=== PATIENT | female | born 1950 | race Caucasian/White ===

== ENCOUNTER → 2016-12-03 | Outpatient (CLI) | payer MEDICARE ==
[~2016-12-03] MED LIST: ALLOPURINOL100 MG PO; AMOXAPINE PO; ATIVAN0.5 MG PO; AUGMENTIN 875 M1 TAB PO; COREG3.125 MG PO; COREG6.25 MG PO; CRESTOR10 MG PO; DAYPRO600 M1 PO; FLEXERIL10 MG PO; LANTUS100 U/ML SC; LIQUID MAGNESI400 MG PO; LISINOPRIL5 MG PO; MAGNESIUM100 MG PO; MELOXICAM7.5 MG PO; MULTIVITAMIN FO1 CAP PO; SYNTHROID0.137 MG PO; VICODIN ES 7501 TA1 PO; VOLTAREN1% T; ZESTRIL10 MG PO; ZITHROMAX250 MG PO
[2016-12-03 10:34] LABS: BASO % 0.3 % (0.0-1.0); EOS # 0.3 10*3/uL (0.0-0.4); EOS % 3.5 % (1.0-4.0); HEMATOCRIT 41.4 % (37.0-47.0); HEMOGLOBIN 13.1 g/dl (12.0-16.0); IG # 0.1 10*3/uL (0.0-0.1); LYMPH # 0.5 10*3/uL (1.3-4.4); LYMPH % 6.7 % (27.0-41.0); MEAN CELL VOLUME 89.8 fl (81.0-99.0); MEAN CORPUSCULAR HGB 28.4 pg (27.0-31.0); MEAN CORPUSCULAR HGB CONC 31.6 g/dl (33.0-37.0); MEAN PLATELET VOLUME 8.5 fl (9.6-12.3); MONO # 1.2 10*3/uL (0.1-1.0); MONO % 14.9 % (3.0-9.0); NEUT # 5.9 10*3/uL (2.3-7.9); PLATELET COUNT AUTOMATED 251 10*3/uL (130-400); RED BLOOD COUNT 4.61 10*6/uL (4.10-5.10); RED CELL DISTRI WIDTH 13.8 % (0-14.5); WHITE BLOOD COUNT 7.9 10*3/uL (4.8-10.8)
[2016-12-03 10:49] LABS: HEMOGLOBIN A1c 9.4 % (4.8-5.6)
[2016-12-03 11:24] LABS: ALBUMIN 3.4 gm/dl (3.1-4.5); BILIRUBIN, DIRECT < 0.1 mg/dL (0.0-0.2); BILIRUBIN, TOTAL 0.3 mg/dl (0.2-1.0); BUN 18 mg/dl (7-24); CARBON DIOXIDE 31 mmol/L (21-32); CHLORIDE 98 mmol/L (98-107); CHOLESTEROL 138 mg/dL (<200); EST GLOM FILT AFRICAN AMERICAN > 60 ml/min; GLUCOSE 234 mg/dL (65-99); POTASSIUM 5.3 mmol/L (3.5-5.1); SGOT/AST 18 IU/L (3-35); SGPT/ALT 29 U/L (12-78); SODIUM 135 mmol/L (136-145); TOTAL PROTEIN 8.4 gm/dL (6.4-8.2); TRIGLYCERIDES 312 mg/dl (<150); VLDL CHOLESTEROL 62 mg/dL (6-40)
[2016-12-03 11:31] LABS: ALKALINE PHOSPHATASE 86 U/L (45-117); FREE T4 1.32 ng/dl (0.76-1.46); HDL CHOLESTEROL 43 mg/dl (40-60); LDL CHOLESTEROL 33 mg/dL (9-159); PHOSPHOROUS 3.7 mg/dL (2.5-4.9)
== END | disposition home or self-care (01) ==
LOC: LAB 10:04
PROVIDERS: Internal Medicine
DX: E11.65 Type 2 diabetes mellitus with hyperglycemia (principal); E04.1 Nontoxic single thyroid nodule; I10 Essential (primary) hypertension

== ENCOUNTER 2016-12-11 17:29 | Inpatient (IN) | payer MEDICARE ==
[~2016-12-11] VITALS: Ht 165.1 cm; Wt 134.0 kg
[2016-12-11 17:55] VITALS: BP 150/75
[2016-12-11] MEDS ORDERED: TOUJEO300 U/ML SC ×2 (17:56→21:45)
[2016-12-11 18:35] LABS: BASO % 0.1 % (0.0-1.0); EOS # 0.2 10*3/uL (0.0-0.4); EOS % 1.2 % (1.0-4.0); HEMATOCRIT 37.4 % (37.0-47.0); IG # 0.2 10*3/uL (0.0-0.1); LYMPH # 1.7 10*3/uL (1.3-4.4); LYMPH % 12.1 % (27.0-41.0); MEAN CELL VOLUME 88.2 fl (81.0-99.0); MEAN CORPUSCULAR HGB 28.3 pg (27.0-31.0); MEAN CORPUSCULAR HGB CONC 32.1 g/dl (33.0-37.0); MEAN PLATELET VOLUME 8.8 fl (9.6-12.3); MONO # 1.4 10*3/uL (0.1-1.0); MONO % 9.8 % (3.0-9.0); NEUT # 10.5 10*3/uL (2.3-7.9); NEUT % 75.7 % (47.0-73.0); PLATELET COUNT AUTOMATED 258 10*3/uL (130-400); RED BLOOD COUNT 4.24 10*6/uL (4.10-5.10); RED CELL DISTRI WIDTH 13.9 % (0-14.5); WHITE BLOOD COUNT 13.9 10*3/uL (4.8-10.8)
[2016-12-11 18:46] LABS: PROTHROMBIN TIME 10.4 SECONDS (9.0-12.4)
[2016-12-11 18:53] LABS: ALBUMIN 2.7 gm/dl (3.1-4.5); ALKALINE PHOSPHATASE 80 U/L (45-117); BILIRUBIN, TOTAL 0.3 mg/dl (0.2-1.0); BUN 15 mg/dl (7-24); CARBON DIOXIDE 30 mmol/L (21-32); CHLORIDE 98 mmol/L (98-107); CPK 55 U/L (26-192); EST GLOM FILT AFRICAN AMERICAN > 60 ml/min; GLUCOSE 272 mg/dL (65-99); MAGNESIUM 1.9 mg/dL (1.5-2.1); POTASSIUM 4.6 mmol/L (3.5-5.1); SGOT/AST 20 IU/L (3-35); SGPT/ALT 22 U/L (12-78); SODIUM 137 mmol/L (136-145); TOTAL PROTEIN 7.6 gm/dL (6.4-8.2)
[2016-12-11 18:54] LABS: TROPONIN I < 0.015 ng/ml (<0.045)
[2016-12-11 20:30] LABS: LA>2 REFLEX 2 HR DRAW NOW
[2016-12-11 20:35] VITALS: BP 138/93
[2016-12-11 20:50] LABS: LA>2 RFLX FOLLOW UP AT 2 HRS 2.1 mmol/L (0.4-2.0)
[2016-12-11] MEDS ORDERED: LANTUS100 U/ML SC (21:06)
[2016-12-11] MEDS ORDERED: CYCLOBENZAPRINE10 MG PO (21:42)
[2016-12-11] MEDS ORDERED: Synthroid,Lev200 MCG PO (21:42)
[2016-12-11] MEDS ORDERED: MAGNESIUM400 M1 PO (21:44)
[2016-12-11] MEDS ORDERED: OXYBUTYNIN10 MG PO (21:46)
[2016-12-11 22:43] LABS: LA>2 REFLEX 4 HR DRAW NOW
[2016-12-12 06:23] LABS: HEMATOCRIT 36.5 % (37.0-47.0); HEMOGLOBIN 11.8 g/dl (12.0-16.0); MEAN CELL VOLUME 87.3 fl (81.0-99.0); MEAN CORPUSCULAR HGB 28.2 pg (27.0-31.0); MEAN CORPUSCULAR HGB CONC 32.3 g/dl (33.0-37.0); MEAN PLATELET VOLUME 8.9 fl (9.6-12.3); PLATELET COUNT AUTOMATED 276 10*3/uL (130-400); RED BLOOD COUNT 4.18 10*6/uL (4.10-5.10); RED CELL DISTRI WIDTH 13.9 % (0-14.5); WHITE BLOOD COUNT 12.9 10*3/uL (4.8-10.8)
[2016-12-12 06:52] LABS: ALBUMIN 2.6 gm/dl (3.1-4.5); ALKALINE PHOSPHATASE 94 U/L (45-117); BILIRUBIN, TOTAL 0.2 mg/dl (0.2-1.0); BUN 16 mg/dl (7-24); CARBON DIOXIDE 27 mmol/L (21-32); CHLORIDE 100 mmol/L (98-107); CHOLESTEROL 109 mg/dL (<200); EST GLOM FILT AFRICAN AMERICAN > 60 ml/min; GLUCOSE 427 mg/dL (65-99); HDL CHOLESTEROL 48 mg/dl (40-60); LDL CHOLESTEROL 40 mg/dL (9-159); PHOSPHOROUS 2.6 mg/dL (2.5-4.9); POTASSIUM 4.7 mmol/L (3.5-5.1); SGOT/AST 17 IU/L (3-35); SGPT/ALT 22 U/L (12-78); SODIUM 136 mmol/L (136-145); TOTAL PROTEIN 7.7 gm/dL (6.4-8.2); TRIGLYCERIDES 107 mg/dl (<150); VLDL CHOLESTEROL 21 mg/dL (6-40)
[2016-12-12 06:56] LABS: THYROID STIM HORMONE (HS) 0.958 uIU/ml (0.358-4.75)
[2016-12-12 07:04] LABS: BILIRUBIN NEGATIVE (NEGATIVE); BLOOD NEGATIVE (NEGATIVE); CLARITY SL CLOUDY (CLEAR); COLOR YELLOW (YELLOW); GLUCOSE 3+ (NEGATIVE); KETONE NEGATIVE (NEGATIVE); LEUKO ESTERASE NEGATIVE (NEGATIVE); NITRITE NEGATIVE (NEGATIVE); PH 5.5 (5.0-9.0); PROTEIN TRACE (NEGATIVE); SPECIFIC GRAVITY 1.015 (1.005-1.030); UROBILINOGEN 0.2 E.U./dl (0.2-1.0)
[2016-12-12 07:14] LABS: ATYPICAL LYMPHS 1 % (0-0); LYMPHOCYTE # 0.8 10*3/uL (1.3-4.4); MONOCYTE # 0.1 10*3/uL (0.1-1.0); NEUTROPHILS 93 % (47-73); PLATELET SUFFICIENCY NORMAL (NORMAL); TOTAL CELLS COUNTED 100 #CELLS
[2016-12-12 07:25] LABS: BACTERIA 1+; URINE REFLEX COMMENT NO (NO)
[2016-12-12 08:00] VITALS: BP 150/80
[2016-12-12 08:55] LABS: HEMOGLOBIN A1c 9.7 % (4.8-5.6)
[2016-12-12 09:54] LABS: VITAMIN D, 25-HYDROXY 24.7 ng/mL (30-100)
[2016-12-12 10:12] LABS: FOLIC ACID > 24.00 ng/mL (>5.38)
[2016-12-12 12:00] VITALS: BP 170/70
[2016-12-12 16:00] VITALS: BP 177/72
[2016-12-12 20:00] VITALS: BP 168/82; BP 182/66
[2016-12-13 00:17] VITALS: BP 142/80
[2016-12-13 06:38] LABS: HEMATOCRIT 36.1 % (37.0-47.0); HEMOGLOBIN 11.4 g/dl (12.0-16.0); MEAN CELL VOLUME 89.8 fl (81.0-99.0); MEAN CORPUSCULAR HGB 28.4 pg (27.0-31.0); MEAN CORPUSCULAR HGB CONC 31.6 g/dl (33.0-37.0); MEAN PLATELET VOLUME 8.4 fl (9.6-12.3); PLATELET COUNT AUTOMATED 317 10*3/uL (130-400); RED BLOOD COUNT 4.02 10*6/uL (4.10-5.10); RED CELL DISTRI WIDTH 13.6 % (0-14.5); WHITE BLOOD COUNT 16.9 10*3/uL (4.8-10.8)
[2016-12-13 07:08] LABS: LYMPHOCYTE # 1.2 10*3/uL (1.3-4.4); METAMYELOCYTES 2 % (0-0); MONOCYTE # 0.7 10*3/uL (0.1-1.0); MYELOCYTES 2 % (0-0); NEUTROPHIL # 14.4 10*3/uL (2.3-7.9); NEUTROPHILS 85 % (47-73); PLATELET SUFFICIENCY NORMAL (NORMAL); POLYCHROMASIA SLIGHT; TOTAL CELLS COUNTED 100 #CELLS
[2016-12-13 07:09] LABS: ROULEAUX SLIGHT
[2016-12-13 07:10] LABS: BUN 24 mg/dl (7-24); CARBON DIOXIDE 31 mmol/L (21-32); CHLORIDE 101 mmol/L (98-107); EST GLOM FILT AFRICAN AMERICAN > 60 ml/min; GLUCOSE 357 mg/dL (65-99); POTASSIUM 4.9 mmol/L (3.5-5.1); SODIUM 137 mmol/L (136-145)
[2016-12-13 08:00] VITALS: BP 136/76
[2016-12-13 12:00] VITALS: BP 133/67
[2016-12-13] MEDS ORDERED: LISINOPRIL20 MG PO (12:49)
[2016-12-13] MEDS ORDERED: GLUCOPHAGE500 MG PO (12:49)
[2016-12-13] MEDS ORDERED: PREDNISONE50 MG PO (12:49)
[2016-12-13] MEDS ORDERED: COREG12.5 M1 PO (12:51)
== END 2016-12-13 14:04 | disposition home or self-care (01) | DRG 871 ==
LOC: ED 17:29 → EDHOLD 19:57 → 5E 19:57
PROVIDERS: Student in an Organized Health Care Education/Training Program
DX: A41.9 Sepsis, unspecified organism (principal); J96.01 Acute respiratory failure with hypoxia; J18.9 Pneumonia, unspecified organism; R65.20 Severe sepsis without septic shock; F41.9 Anxiety disorder, unspecified; E11.8 Type 2 diabetes mellitus with unspecified complications; Z79.4 Long term (current) use of insulin; E78.5 Hyperlipidemia, unspecified; E03.9 Hypothyroidism, unspecified; Z88.4 Allergy status to anesthetic agent; Z88.0 Allergy status to penicillin; J45.909 Unspecified asthma, uncomplicated; M19.90 Unspecified osteoarthritis, unspecified site

== ENCOUNTER → 2017-05-24 | Outpatient (CLI) | payer MEDICARE ==
[~2017-05-24] MED LIST changes: +COREG12.5 M1 PO; +CYCLOBENZAPRINE10 MG PO; +GLUCOPHAGE500 MG PO; +LISINOPRIL20 MG PO; +MAGNESIUM400 M1 PO; +OXYBUTYNIN10 MG PO; +PREDNISONE50 MG PO; +Synthroid,Lev200 MCG PO; +TOUJEO300 U/ML SC
[2017-05-24 11:32] LABS: BASO # 0.1 10*3/uL (0.0-0.1); BASO % 0.5 % (0.0-1.0); EOS # 0.7 10*3/uL (0.0-0.4); EOS % 6.3 % (1.0-4.0); HEMATOCRIT 40.3 % (37.0-47.0); HEMOGLOBIN 13.2 g/dl (12.0-16.0); LYMPH # 2.3 10*3/uL (1.3-4.4); LYMPH % 20.5 % (27.0-41.0); MEAN CELL VOLUME 89.6 fl (81.0-99.0); MEAN CORPUSCULAR HGB 29.3 pg (27.0-31.0); MEAN CORPUSCULAR HGB CONC 32.8 g/dl (33.0-37.0); MEAN PLATELET VOLUME 8.6 fl (9.6-12.3); MONO # 1.1 10*3/uL (0.1-1.0); NEUT # 6.8 10*3/uL (2.3-7.9); NEUT % 62.1 % (47.0-73.0); PLATELET COUNT AUTOMATED 297 10*3/uL (130-400); RED CELL DISTRI WIDTH 13.5 % (0-14.5)
[2017-05-24 12:07] LABS: ALBUMIN 3.3 gm/dl (3.1-4.5); BILIRUBIN, DIRECT < 0.1 mg/dL (0.0-0.2); BUN 23 mg/dl (7-24); CHLORIDE 101 mmol/L (98-107); CHOLESTEROL 136 mg/dL (<200); CREATININE 0.93 mg/dL (0.55-1.02); MAGNESIUM 1.6 mg/dL (1.5-2.1); PHOSPHOROUS 4.1 mg/dL (2.5-4.9); POTASSIUM 4.7 mmol/L (3.5-5.1); SGOT/AST 15 IU/L (3-35); SGPT/ALT 22 U/L (12-78); SODIUM 137 mmol/L (136-145); TRIGLYCERIDES 236 mg/dl (<150); VLDL CHOLESTEROL 47 mg/dL (6-40)
[2017-05-24 12:15] LABS: ALKALINE PHOSPHATASE 116 U/L (45-117); HDL CHOLESTEROL 41 mg/dl (40-60); LDL CHOLESTEROL 48 mg/dL (9-159); TOTAL PROTEIN 8.5 gm/dL (6.4-8.2)
== END | disposition home or self-care (01) ==
LOC: LAB 10:52
PROVIDERS: Internal Medicine
DX: E11.65 Type 2 diabetes mellitus with hyperglycemia (principal)

== ENCOUNTER → 2017-06-18 | Outpatient (CLI) | payer MEDICARE ==
[2017-06-18 11:13] LABS: FREE T4 0.93 ng/dl (0.76-1.46)
[2017-06-18 11:17] LABS: THYROID STIM HORMONE (HS) 8.01 uIU/ml (0.358-4.75)
== END | disposition home or self-care (01) ==
LOC: LAB 10:14
PROVIDERS: Internal Medicine
DX: E03.9 Hypothyroidism, unspecified (principal)

== ENCOUNTER → 2018-06-13 | Outpatient (CLI) | payer MEDICARE ==
[2018-06-13 17:31] LABS: BILIRUBIN NEGATIVE (NEGATIVE); BLOOD TRACE-INTACT (NEGATIVE); CLARITY SL CLOUDY (CLEAR); COLOR YELLOW (YELLOW); GLUCOSE NEGATIVE (NEGATIVE); KETONE NEGATIVE (NEGATIVE); LEUKO ESTERASE 1+ (NEGATIVE); NITRITE POSITIVE (NEGATIVE); PH 5.5 (5.0-9.0); UROBILINOGEN 0.2 E.U./dl (0.2-1.0)
[2018-06-13 17:31] LABS: BASO % 0.3 % (0.0-1.0); EOS # 0.3 10*3/uL (0.0-0.4); EOS % 2.8 % (1.0-4.0); HEMATOCRIT 38.3 % (37.0-47.0); HEMOGLOBIN 12.1 g/dl (12.0-16.0); LYMPH % 18.5 % (27.0-41.0); MEAN CELL VOLUME 90.3 fl (81.0-99.0); MEAN CORPUSCULAR HGB 28.5 pg (27.0-31.0); MEAN CORPUSCULAR HGB CONC 31.6 g/dl (33.0-37.0); MEAN PLATELET VOLUME 8.4 fl (9.6-12.3); MONO # 0.9 10*3/uL (0.1-1.0); MONO % 8.6 % (3.0-9.0); NEUT # 7.6 10*3/uL (2.3-7.9); NEUT % 69.3 % (47.0-73.0); PLATELET COUNT AUTOMATED 266 10*3/uL (130-400); RED BLOOD COUNT 4.24 10*6/uL (4.10-5.10); WHITE BLOOD COUNT 10.9 10*3/uL (4.8-10.8)
[2018-06-13 17:45] LABS: BACTERIA 4+
[2018-06-13 17:46] LABS: EPITHELIAL CELLS 21-30; WBC 21-30 wbc/hpf (0-5)
[2018-06-13 17:48] LABS: ALKALINE PHOSPHATASE 82 U/L (45-117); BUN 19 mg/dl (7-24); CHLORIDE 98 mmol/L (98-107); CREATININE 0.85 mg/dL (0.55-1.02); POTASSIUM 4.8 mmol/L (3.5-5.1); SGOT/AST 18 IU/L (3-35); SGPT/ALT 27 U/L (12-78); SODIUM 134 mmol/L (136-145)
== END | disposition home or self-care (01) ==
LOC: LAB 15:49 → US 16:00
PROVIDERS: Nurse Practitioner Family
DX: N28.89 Other specified disorders of kidney and ureter (principal); E11.9 Type 2 diabetes mellitus without complications; R32 Unspecified urinary incontinence

== ENCOUNTER → 2018-08-25 | Outpatient (CLI) | payer MEDICARE ==
--- NOTE | ~2018-08-25 | EKG ---
[place], [place] ELECTROCARDIOGRAM REPORT NAME: EVELIN DIGGS UNIT #: [id number] ROOM: DOCTOR: EPIPHANY DRAFT REPORT BIRTHDATE: [birth year] [facility] Test Date: 2018-08-25 Test Time: 15:02:48 Pat Name: EVELIN DIGGS Department: Room: Gender: F Sales Representative [employer]: ANTON : 1950 Requested By: SANDI OTT Order Number: [id number] Reading MD: Sandi Ott MD Measurements Intervals [place] Rate: 79 P: 70 MO: 159 QRS: 1 QRSD: 92 T: 44 QT: 363 QTc: 417 Interpretive Statements Sinus rhythm Low voltage, precordial leads Electronically Signed On 08-26-2018 11:54:06 PST by Sandi Ott MD CM:EKGRPT:ELECTROCARDIOGRAM REPORT 1502 1154 SANDI OTT MD EPIPHANY DRAFT REPORT SANDI OTT MD
[2018-08-25 15:39] LABS: BILIRUBIN NEGATIVE (NEGATIVE); BLOOD NEGATIVE (NEGATIVE); CLARITY SL CLOUDY (CLEAR); COLOR YELLOW (YELLOW); GLUCOSE NEGATIVE (NEGATIVE); KETONE NEGATIVE (NEGATIVE); LEUKO ESTERASE 1+ (NEGATIVE); NITRITE POSITIVE (NEGATIVE); UROBILINOGEN 0.2 E.U./dl (0.2-1.0)
[2018-08-25 15:48] LABS: RBC 0-2 rbc/hpf (0-2); WBC 31-40 wbc/hpf (0-5)
[2018-08-25 15:49] LABS: BACTERIA 4+; MUCOUS TRACE
[2018-08-25 15:49] LABS: BASO % 0.3 % (0.0-1.0); EOS # 0.5 10*3/uL (0.0-0.4); EOS % 4.7 % (1.0-4.0); HEMATOCRIT 38.3 % (37.0-47.0); HEMOGLOBIN 11.8 g/dl (12.0-16.0); LYMPH # 1.8 10*3/uL (1.3-4.4); LYMPH % 16.4 % (27.0-41.0); MEAN CELL VOLUME 90.8 fl (81.0-99.0); MEAN CORPUSCULAR HGB CONC 30.8 g/dl (33.0-37.0); MEAN PLATELET VOLUME 8.4 fl (9.6-12.3); MONO # 0.8 10*3/uL (0.1-1.0); MONO % 7.1 % (3.0-9.0); NEUT # 7.8 10*3/uL (2.3-7.9); PLATELET COUNT AUTOMATED 258 10*3/uL (130-400); RED BLOOD COUNT 4.22 10*6/uL (4.10-5.10); RED CELL DISTRI WIDTH 13.4 % (0-14.5); WHITE BLOOD COUNT 10.9 10*3/uL (4.8-10.8)
[2018-08-25 15:58] LABS: ACT PARTIAL THROMBO TIME 25.7 SECONDS (20.8-31.5)
[2018-08-25 15:59] LABS: ALKALINE PHOSPHATASE 85 U/L (45-117); BUN 18 mg/dl (7-24); CHLORIDE 102 mmol/L (98-107); CREATININE 0.96 mg/dL (0.55-1.02); POTASSIUM 5.2 mmol/L (3.5-5.1); SGOT/AST 14 IU/L (3-35); SGPT/ALT 27 U/L (12-78); SODIUM 137 mmol/L (136-145); TOTAL PROTEIN 7.4 gm/dL (6.4-8.2)
== END | disposition home or self-care (01) ==
LOC: LAB 14:31
PROVIDERS: Nurse Practitioner Family
DX: N30.40 Irradiation cystitis without hematuria (principal); E13.620 Other specified diabetes mellitus with diabetic dermatitis

== ENCOUNTER → 2018-11-04 | Outpatient (CLI) | payer MEDICARE | END | disposition home or self-care (01) | LOC: MAMMO 10-14 15:00 → CARD 12:04 | DX: Z12.31 Encounter for screening mammogram for malignant neoplasm of breast (principal); I35.0 Nonrheumatic aortic (valve) stenosis; R01.1 Cardiac murmur, unspecified ==

== ENCOUNTER → 2018-11-10 | Outpatient (CLI) | payer MEDICARE ==
[2018-11-10 12:08] LABS: BASO % 0.3 % (0.0-1.0); EOS # 0.3 10*3/uL (0.0-0.4); EOS % 2.6 % (1.0-4.0); HEMATOCRIT 39.8 % (37.0-47.0); HEMOGLOBIN 12.2 g/dl (12.0-16.0); LYMPH # 2.5 10*3/uL (1.3-4.4); LYMPH % 21.1 % (27.0-41.0); MEAN CELL VOLUME 91.5 fl (81.0-99.0); MEAN CORPUSCULAR HGB CONC 30.7 g/dl (33.0-37.0); MEAN PLATELET VOLUME 8.3 fl (9.6-12.3); MONO # 1.1 10*3/uL (0.1-1.0); MONO % 9.5 % (3.0-9.0); NEUT # 7.8 10*3/uL (2.3-7.9); NEUT % 65.7 % (47.0-73.0); PLATELET COUNT AUTOMATED 238 10*3/uL (130-400); RED BLOOD COUNT 4.35 10*6/uL (4.10-5.10); RED CELL DISTRI WIDTH 14.1 % (0-14.5); WHITE BLOOD COUNT 11.8 10*3/uL (4.8-10.8)
[2018-11-10 12:46] LABS: ALBUMIN 3.1 gm/dl (3.1-4.5); BILIRUBIN, DIRECT < 0.1 mg/dL (0.0-0.2); BUN 25 mg/dl (7-24); CHLORIDE 104 mmol/L (98-107); CHOLESTEROL 157 mg/dL (<200); POTASSIUM 5.1 mmol/L (3.5-5.1); SGOT/AST 12 IU/L (3-35); SGPT/ALT 26 U/L (12-78); SODIUM 139 mmol/L (136-145); TOTAL PROTEIN 7.4 gm/dL (6.4-8.2)
[2018-11-10 12:50] LABS: ALKALINE PHOSPHATASE 105 U/L (45-117); HDL CHOLESTEROL 44 mg/dl (40-60); LDL CHOLESTEROL 88 mg/dL (9-159); PHOSPHOROUS 4.2 mg/dL (2.5-4.9); TRIGLYCERIDES 124 mg/dl (<150); VLDL CHOLESTEROL 25 mg/dL (6-40)
== END | disposition home or self-care (01) ==
LOC: LAB 11:35
PROVIDERS: Internal Medicine
DX: E11.65 Type 2 diabetes mellitus with hyperglycemia (principal); I10 Essential (primary) hypertension

== ENCOUNTER → 2019-04-10 | Outpatient (CLI) | payer MEDICARE ==
[~2019-04-10] MED LIST changes: +CLEOCIN HCL300 MG PO
--- NOTE | ~2019-04-10 | EKG ---
[place], [place] ELECTROCARDIOGRAM REPORT NAME: EVELIN DIGGS UNIT #: [id number] ROOM: DOCTOR: BRIANDA DRAFT REPORT BIRTHDATE: [birth year] [facility] Test Date: 2019-04-10 Test Time: 09:24:12 Pat Name: EVELIN DIGGS Department: Room: Gender: F Rn Progressive Care: : 1950 Requested By: LANETTE DELGADILLO Order Number: [id number] Reading MD: Navarro Flower MD Measurements Intervals [place] Rate: 79 P: 63 TN: 163 QRS: -10 QRSD: 91 T: 35 QT: 376 QTc: 432 Interpretive Statements Sinus rhythm Low voltage, precordial leads Compared to ECG 08/25/2018 15:02:48 No significant changes Electronically Signed On 04-11-2019 13:20:13 PDT by Navarro Flower MD CM:EKGRPT:ELECTROCARDIOGRAM REPORT 3 1320 LANETTE SAGASTUMEANY DRAFT REPORT LANETTE DELGADILLO
[2019-04-10 09:54] LABS: ALBUMIN 3.2 gm/dl (3.1-4.5); ALKALINE PHOSPHATASE 96 U/L (45-117); BILIRUBIN, DIRECT < 0.1 mg/dL (0.0-0.2); BUN 17 mg/dl (7-24); CHLORIDE 104 mmol/L (98-107); CREATININE 0.83 mg/dL (0.55-1.02); PHOSPHOROUS 3.6 mg/dL (2.5-4.9); POTASSIUM 4.6 mmol/L (3.5-5.1); SGOT/AST 16 IU/L (3-35); SGPT/ALT 21 U/L (12-78); SODIUM 138 mmol/L (136-145); TOTAL PROTEIN 7.4 gm/dL (6.4-8.2)
[2019-04-10 09:57] LABS: BASO % 0.3 % (0.0-1.0); EOS # 0.6 10*3/uL (0.0-0.4); EOS % 5.7 % (1.0-4.0); HEMATOCRIT 39.8 % (37.0-47.0); HEMOGLOBIN 12.3 g/dl (12.0-16.0); LYMPH # 2.1 10*3/uL (1.3-4.4); LYMPH % 21.7 % (27.0-41.0); MEAN CELL VOLUME 91.1 fl (81.0-99.0); MEAN CORPUSCULAR HGB 28.1 pg (27.0-31.0); MEAN CORPUSCULAR HGB CONC 30.9 g/dl (33.0-37.0); MEAN PLATELET VOLUME 8.8 fl (9.6-12.3); MONO % 9.9 % (3.0-9.0); NEUT # 6.1 10*3/uL (2.3-7.9); PLATELET COUNT AUTOMATED 281 10*3/uL (130-400); RED BLOOD COUNT 4.37 10*6/uL (4.10-5.10); RED CELL DISTRI WIDTH 13.9 % (0-14.5); WHITE BLOOD COUNT 9.8 10*3/uL (4.8-10.8)
== END | disposition home or self-care (01) ==
LOC: LAB 09:06
PROVIDERS: Internal Medicine
DX: I10 Essential (primary) hypertension (principal); E11.65 Type 2 diabetes mellitus with hyperglycemia

== ENCOUNTER 2019-05-05 17:03 | Emergency (ER) | payer MEDICARE ==
[~2019-05-05] VITALS: Ht 165.1 cm; Wt 122.5 kg
[~2019-05-05 17:03] MED LIST changes: -CLEOCIN HCL300 MG PO
[2019-05-05] MEDS ORDERED: CLEOCIN HCL300 MG PO (17:40)
== END 2019-05-05 17:40 | disposition home or self-care (01) ==
LOC: ED 17:03
DX: K02.9 Dental caries, unspecified (principal); Z79.899 Other long term (current) drug therapy; Z88.0 Allergy status to penicillin; Z88.8 Allergy status to other drugs, medicaments and biological substances

== ENCOUNTER 2019-05-26 15:36 | Inpatient (IN) | payer MEDICARE ==
[~2019-05-26] VITALS: Ht 165.1 cm; Wt 120.5 kg
[~2019-05-26 15:36] MED LIST changes: +CLEOCIN HCL300 MG PO; -VOLTAREN1% T; +VOLTAREN100 GM T
[2019-05-26 15:38] VITALS: BP 136/52
--- NOTE | 2019-05-26 17:43 | NUR ---
PT STATES THE TORADOL HAS HELPED HER PAIN.
[2019-05-26 18:53] VITALS: BP 110/50
[2019-05-26 20:33] VITALS: BP 120/56
--- NOTE | 2019-05-26 20:33 | NUR ---
Time: 2033 A 69 year old FEMALE admitted to under services of ANKIT NGUYEN DO, Pt. arrived via stretcher from ER. Chief complaint: KNEE PAIN. CARYN COPELAND
[2019-05-26] MEDS ORDERED: LISINOPRIL10 M1 PO (20:48)
[2019-05-26] MEDS ORDERED: ALLOPURINOL300 MG PO (20:53)
[2019-05-26] MEDS ORDERED: DULOXETINE HCL30 MG PO (20:55)
[2019-05-26] MEDS ORDERED: LANTUS SOL100 UNIT/1 SQ (20:56)
[2019-05-26] MEDS ORDERED: ALLERGY RELIE15.8 ML NAS (20:59)
[2019-05-26] MEDS ORDERED: PERCOCET 7.5-31 EACH PO (21:00)
[2019-05-26] MEDS ORDERED: Ipratropium Brom3 ML INH (21:01)
[2019-05-26] MEDS ORDERED: SYMB160 INH (21:03)
[2019-05-26 21:07] LABS: BASO % 0.2 % (0.0-1.0); EOS # 0.1 10*3/uL (0.0-0.4); EOS % 0.9 % (1.0-4.0); HEMATOCRIT 37.6 % (37.0-47.0); HEMOGLOBIN 11.6 g/dl (12.0-16.0); LYMPH # 1.2 10*3/uL (1.3-4.4); LYMPH % 10.6 % (27.0-41.0); MEAN CELL VOLUME 91.9 fl (81.0-99.0); MEAN CORPUSCULAR HGB 28.4 pg (27.0-31.0); MEAN CORPUSCULAR HGB CONC 30.9 g/dl (33.0-37.0); MEAN PLATELET VOLUME 8.7 fl (9.6-12.3); MONO # 1.2 10*3/uL (0.1-1.0); MONO % 10.7 % (3.0-9.0); NEUT # 8.6 10*3/uL (2.3-7.9); NEUT % 76.6 % (47.0-73.0); PLATELET COUNT AUTOMATED 286 10*3/uL (130-400); RED BLOOD COUNT 4.09 10*6/uL (4.10-5.10); RED CELL DISTRI WIDTH 14.4 % (0-14.5); WHITE BLOOD COUNT 11.2 10*3/uL (4.8-10.8)
[2019-05-26 21:18] LABS: CREATININE 1.3 mg/dL (0.55-1.02); POTASSIUM 4.5 mmol/L (3.5-5.1)
--- NOTE | 2019-05-26 21:31 | NUR ---
MORPHINE GIVEN FOR C/O PAIN IN RIGHT KNEE RATED 10/10 ON A 0/10 PAIN SCALE. TYLENOL GIVEN FOR ORAL TEMP OF 99.5. WILL MONITOR FOR EFFECTIVENESS
[2019-05-27] VITALS: BP 121/55
--- NOTE | 2019-05-27 00:12 | NUR ---
PATIENT RESTING IN BED WITH NO NEEDS MADE. FLUIDS INFUSING WITHOUT DIFFICULTY. BED IN LOWEST POSITION, CALL LIGHT IN REACH
--- NOTE | 2019-05-27 05:58 | NUR ---
PT COMPLAINT OF PAIN TO RIGHT KNEE, RESTING IN BED AT THIS TIME. PAIN 7 ON 1-10 SCALE. PT GIVEN MORPHINE PER ORDER.
[2019-05-27 06:54] LABS: BASO % 0.2 % (0.0-1.0); HEMATOCRIT 35.9 % (37.0-47.0); HEMOGLOBIN 11.2 g/dl (12.0-16.0); LYMPH # 0.8 10*3/uL (1.3-4.4); LYMPH % 8.2 % (27.0-41.0); MEAN CELL VOLUME 90.9 fl (81.0-99.0); MEAN CORPUSCULAR HGB 28.4 pg (27.0-31.0); MEAN CORPUSCULAR HGB CONC 31.2 g/dl (33.0-37.0); MEAN PLATELET VOLUME 8.9 fl (9.6-12.3); MONO # 0.2 10*3/uL (0.1-1.0); MONO % 2.5 % (3.0-9.0); NEUT # 8.5 10*3/uL (2.3-7.9); NEUT % 88.3 % (47.0-73.0); PLATELET COUNT AUTOMATED 281 10*3/uL (130-400); RED BLOOD COUNT 3.95 10*6/uL (4.10-5.10); RED CELL DISTRI WIDTH 14.4 % (0-14.5); WHITE BLOOD COUNT 9.7 10*3/uL (4.8-10.8)
--- NOTE | 2019-05-27 07:10 | NUR ---
ARRIVED ON SHIFT, INTRODUCED TO PATIENT, BEDSIDE REPORT RECEIVED, WHITE BOARD UPDATED NO NEEDS VOICED AT THIS TIME.
[2019-05-27 07:24] LABS: POTASSIUM 4.8 mmol/L (3.5-5.1)
[2019-05-27 07:25] LABS: ACT PARTIAL THROMBO TIME 37.2 SECONDS (20.0-32.1)
[2019-05-27 07:33] LABS: ALBUMIN 2.4 gm/dl (3.1-4.5); CREATININE 1.14 mg/dL (0.55-1.02); FREE T4 1.51 ng/dl (0.76-1.46); PHOSPHOROUS 3.7 mg/dL (2.5-4.9); THYROID STIM HORMONE (HS) 0.11 uIU/ml (0.358-4.75); TOTAL PROTEIN 7.1 gm/dL (6.4-8.2); URIC ACID 4.7 mg/dL (2.6-6.0)
--- NOTE | 2019-05-27 07:57 | NUR ---
Shift chart check completed.
[2019-05-27 08:00] VITALS: BP 132/64
[2019-05-27 08:57] LABS: VITAMIN D, 25-HYDROXY 23.2 ng/mL (30-100)
--- NOTE | 2019-05-27 08:58 | NUR ---
PHYSICAL THERAPY Nursing screen received and chart reviewed. Recommend PT evaluation when medically appropriate. Thank you. Paige Gonzalez,PT,DPT
--- NOTE | 2019-05-27 09:00 | NUR ---
Clinical Assoc in to talk to patient. Patient states lives at home alone with her family checking in on her. There are 14 steps in the home. Physician: Dr. Yusuf Parkinson Pharmacy: [facility] Home health services: would like [facility] Patient's level of ADLs: MINIMAL ASSIST Patient has working utilities: yes DME: quad cane, nebulizer Follow-up physician's appointment after d/c: will be made by the hospitalist nurse director upon discharge Does patient want to access PORTAL?: no Discharge plan discussed with patient. She lives at home alone with her family checking in on her. She is independent in her ADLs and ambulates with a quad cane. Discussed home health care services and she is agreeable. When provided with a list of agencies she chose [facility]. When medically stable she will be discharged to home with [facility] services. Her best friend, Aster, will provide transportation on discharge. BECCA LENTZ
--- NOTE | 2019-05-27 09:00 | NUR ---
CALL PLACED TO DR. MCCRARY'S OFFICE, ASVISED OF CONSULT FOR CHRONIC R KNEE PAIN.
--- NOTE | 2019-05-27 10:54 | NUR ---
CALL PLACED TO DR. MCCRARY, SPOKE TO SAMREEN ADVISED THATWEIGHT IS [phone]
[2019-05-27 12:00] VITALS: BP 138/43
--- NOTE | 2019-05-27 14:32 | NUR ---
PHYSICAL THERAPY Physical therapy evaluation complete, 4E. Full details and evaluation to follow. moderate complexity determined after therapy evaluation and chart review. PT will work on strength, endurance, balance, gait and safety. Recommending SNF. thank you. Fabiana Fajardo, PT, DPT
--- NOTE | 2019-05-27 14:47 | NUR ---
PATIENT REQUESTED TO SPEAK WITH SUPERVISOR COMPONENT ASSEMBLER REGARDING HOUSING AND HOME EQUIPMENT, ADVISED ANASTASIIA IN CASEMANAGEMENT.
[2019-05-27 16:00] VITALS: BP 132/59
--- NOTE | 2019-05-27 17:01 | NUR ---
PATIENT BS 421, ALSO RECEIVED REPORT OF LACTIC ACID 2.[address] ISIDRO OF BOTH RESULTS, ADVISED TO CONTINUE WITH SS INSULIN ORDERED.
[2019-05-27 18:44] LABS: BF LYMPHOCYTES 6 %; BF MONOCYTES 16 %; BF NEUTROPHILS 78 %
[2019-05-27 18:45] LABS: BODY FLUID WBC 48825 /uL
--- NOTE | 2019-05-27 19:37 | NUR ---
NOTIFIED DR. KEITH OF CRITICAL LATIC ACID OF 2.4. NO NEW ORDERS RECEIVED.
[2019-05-27 20:00] VITALS: BP 128/57
--- NOTE | 2019-05-27 21:55 | NUR ---
DR GALLEGOS NOTIFIED OF CRITICAL LACTIC ACID OF 2.5.
[2019-05-28] VITALS (10 sets, daily range): BP systolic 118–157; BP diastolic 45–93
--- NOTE | 2019-05-28 00:50 | NUR ---
Patient medicated with norco as per prn order for c/o back pain. rated pain a 5/10 with 10 being the worst. see emar. reinforced use of call light.
--- NOTE | 2019-05-28 01:43 | NUR ---
DR. YOUNG NOTIFIED OF CRITICAL LSCTIC ACID OF 2.4.
[2019-05-28 03:50] LABS: BASO % 0.1 % (0.0-1.0); HEMATOCRIT 31.7 % (37.0-47.0); LYMPH # 0.9 10*3/uL (1.3-4.4); LYMPH % 6.5 % (27.0-41.0); MEAN CELL VOLUME 90.1 fl (81.0-99.0); MEAN CORPUSCULAR HGB 28.4 pg (27.0-31.0); MEAN CORPUSCULAR HGB CONC 31.5 g/dl (33.0-37.0); MEAN PLATELET VOLUME 8.7 fl (9.6-12.3); MONO # 0.9 10*3/uL (0.1-1.0); MONO % 6.4 % (3.0-9.0); NEUT # 12.3 10*3/uL (2.3-7.9); NEUT % 86.1 % (47.0-73.0); PLATELET COUNT AUTOMATED 263 10*3/uL (130-400); RED BLOOD COUNT 3.52 10*6/uL (4.10-5.10); RED CELL DISTRI WIDTH 14.4 % (0-14.5); WHITE BLOOD COUNT 14.3 10*3/uL (4.8-10.8)
[2019-05-28 04:05] LABS: ALBUMIN 2.2 gm/dl (3.1-4.5); ALKALINE PHOSPHATASE 96 U/L (45-117); BUN 31 mg/dl (7-24); CHLORIDE 106 mmol/L (98-107); CREATININE 0.99 mg/dL (0.55-1.02); POTASSIUM 4.9 mmol/L (3.5-5.1); SGOT/AST 114 IU/L (3-35); SGPT/ALT 127 U/L (12-78); SODIUM 136 mmol/L (136-145); TOTAL PROTEIN 6.4 gm/dL (6.4-8.2)
--- NOTE | 2019-05-28 07:15 | NUR ---
ARRIVED ON SHIFT, INTRODUCED TO PATIENT, BEDSIDE REPORT RECEIVED.WHITE BOARD UPDATED.
--- NOTE | 2019-05-28 09:00 | NUR ---
Inspector Materials And Processes in to see patient. Discussed short term SNF and she is agreeable. When provided with a list of facilities she chose [facility]. Discussed with CM, supply planner, and patient regarding homelessness. She states she was staying with family but her welcome has been worn out. She was supposed to have an apartment all set up but yesterday the land lord called and said he needed the apartment for a family member that needed it for 3-4 months. Discussed [facility], [facility] [place], and [facility]. She states she has applied to all of the above within the last 3 weeks. kit planner to give more information to patient. kit planner following for SNF referral.
--- NOTE | 2019-05-28 09:35 | NUR ---
Shift chart check completed.
--- NOTE | 2019-05-28 10:15 | NUR ---
Patient is now stating she is homeless. She had been staying with some relatives but the relationship is now deteriorating. She had a house lined up to rent but was notified yesterday that the rental is no longer available. She stated she completed the application for [facility] housing a couple of months ago but there is a waiting list. I explained to her that if she stated at a homeless group home for 2 consecutive nights, she will move to the 1st place on the housing list. I also reminded her that because it's the first of the month, people who evaluate as no longer eligible for low income housing would be moving out making units available. I provided her with the phone number and told her to call and check on the list; I also provided her with a list of homeless shelters she would have to call herself. She was also provided with an application and phone number for the [facility] apartments. Patient was grateful and stated she will start working on this today. At this time patient is referred to the [facility] for snf placment. This requires a precert.
--- NOTE | 2019-05-28 10:15 | NUR ---
Patient is now requesting a referral to the [facility] for short term skilled. Referral was faxed, patient was accepted. Requires PT/OT precert.
--- NOTE | 2019-05-28 11:38 | NUR ---
PHYSICAL THERAPY Patient's bed is not in room at this time. Patient is in medical procedure at this time. MARISA RAO COMPRESS ENGINEER
--- NOTE | 2019-05-28 11:41 | NUR ---
Patient not available for Occupational Therapy evaluation as she is out of her room for a surgical procedure. Daphney Montana OTR/l
--- NOTE | 2019-05-28 13:18 | NUR ---
[facility] [place] intermediate project manager called back and stated she does not have any open apartments at [facility] right now, but there is not a waiting list either, so one could come open at any time. She also stated the [facility] [place] was full but she will have a 1 bedroom open Nov. . She gave me the fax number for patient to fax applicatiaon when she finishes completing it.
--- NOTE | 2019-05-28 14:15 | NUR ---
Occupational Therapy evaluation completed on 4 with full eval to follow. Precautions include fall risk, obesity, septic right knee with recent I and D by Dr. Christianson, moderate complexity level 06808 via chart review, testing and evaluation. Recommend OT per POC and SNF to enable return home at independent level. Thank you. Daphney Montana OTR/L
--- NOTE | 2019-05-28 15:53 | NUR ---
PHYSICAL THERAPY CO-SIGN I approve of the Physical Therapy notes written above. BECCA ESCALANTE PT,DPT
--- NOTE | 2019-05-28 16:03 | NUR ---
PHYSICAL THERAPY Patient was approached for PT session this AFTERNOON ND SHE DECLINED TREATMENT, SAYING SHE WAS NOT FEELING WELL AND VERY WEAK. Will check back tommorrow. MARISA RAO CAROUSEL OPERATOR
[2019-05-29] VITALS (8 sets, daily range): BP systolic 125–173; BP diastolic 65–81
--- NOTE | 2019-05-29 02:20 | NUR ---
PATIENT RESTING QUIETLY. NO FURTHER C/O VOICED.
--- NOTE | 2019-05-29 03:00 | NUR ---
MORPHINE GIVEN PER PRN ORDER FOR C/O LEG PAIN. RATED PAIN A6-7/10 WITH 10 BEING THE WORST. SEE EMAR. REINFORCED USE OF CALL LIGHT.
[2019-05-29 07:33] LABS: BASO % 0.1 % (0.0-1.0); HEMATOCRIT 33.5 % (37.0-47.0); HEMOGLOBIN 10.2 g/dl (12.0-16.0); LYMPH # 1.2 10*3/uL (1.3-4.4); LYMPH % 8.5 % (27.0-41.0); MEAN CELL VOLUME 91.8 fl (81.0-99.0); MEAN CORPUSCULAR HGB 27.9 pg (27.0-31.0); MEAN CORPUSCULAR HGB CONC 30.4 g/dl (33.0-37.0); MEAN PLATELET VOLUME 8.8 fl (9.6-12.3); MONO # 1.4 10*3/uL (0.1-1.0); MONO % 9.5 % (3.0-9.0); NEUT # 11.5 10*3/uL (2.3-7.9); NEUT % 80.6 % (47.0-73.0); PLATELET COUNT AUTOMATED 281 10*3/uL (130-400); RED BLOOD COUNT 3.65 10*6/uL (4.10-5.10); RED CELL DISTRI WIDTH 14.5 % (0-14.5); WHITE BLOOD COUNT 14.3 10*3/uL (4.8-10.8)
--- NOTE | 2019-05-29 08:42 | NUR ---
PRN MORPHINE GIVEN FOR CO RIGHT LEG PAIN RATED A 6/10. WILL CHECK EFFECTIVENESS. CALL LIGHT WITHIN REACH.
--- NOTE | 2019-05-29 08:48 | NUR ---
Additional clinicals and therapy faxed to [facility] to complete referral. Patient accepted, precert started, waiting on auth.
--- NOTE | 2019-05-29 09:08 | NUR ---
OFF THE FLOOR AT THIS TIME FOR SHIRA.
--- NOTE | 2019-05-29 09:41 | NUR ---
OT NOTE Attempted to see pt this A.M. for OT session and upon arrival pt was out of the room for surgery. Will check back at a later time/date and continue with POC as indicated. LEANDER Spivey/Shaun
--- NOTE | 2019-05-29 09:51 | NUR ---
PHYSICAL THERAPY Patient was out of her room this am for Surgery and not available for therapy at this time. Will continue per POC as able. Beka Pinzon, LAMP SHADE JOINER
--- NOTE | 2019-05-29 11:53 | NUR ---
DR. SANNA JAYFIED OF CRITICAL RESULT.
--- NOTE | 2019-05-29 12:05 | NUR ---
PT HAS RETURNED TO THE FLOOR FROM SURGERY AT THIS TIME.
--- NOTE | 2019-05-29 12:05 | NUR ---
PT DIDN'T RETURN FROM SURGERY TIL THIS TIME TO REEVALUTE HER PAIN. SHE STATES THE PAIN MED WAS EFFECTIVE AND WENT DOWN TO A 4/10 PAIN. WILL CONTINUE TO MONITOR. CALL LIGHT WITHIN REACH.
--- NOTE | 2019-05-29 12:22 | NUR ---
PHYSICAL THERAPY CO-SIGN I approve of the Physical Therapy notes written above. BECCA ESCALANTE PT, DPT
--- NOTE | 2019-05-29 13:48 | NUR ---
PHYSICAL THERAPY Patient was approached several times this pm for therapy visit and was receiving patient care first attmept and eating late lunch upon second attempt. Will continue per POC as able. Beka Pinzon, WASTE AND BATTING WASTE CHOPPER
--- NOTE | 2019-05-29 13:48 | NUR ---
OT NOTE Attempted to see pt this P.M. for OT session and upon arrival pt was requesting to wait till later due to eating lunch. Will check back at a later time/date and continue with POC as able. LEANDER Spivey/Shaun
[2019-05-29] MEDS ORDERED: CEFAZOLIN1 G1 IV (14:48)
--- NOTE | 2019-05-29 14:53 | NUR ---
PT EXPRESSED SHE DID NOT WANT HER AEROSOL TREATMENTS, DUONEB AND PULMICORT, SHE STATES SHE WANTS TO DO HER INHALER SYMBICORT WHICH SHE HAS WITH HER. RT TALKED TO RN AND SHE WAS TO GET IT PROFILED THROUGH PHARMACY. DR. SANNA GUTIERRES
--- NOTE | 2019-05-29 15:56 | NUR ---
PT C/O RIGHT LEG PAIN RATING IT A 7/10 ON THE PAIN SCALE. MEDICATED WITH PRN NORCO. WILL CHECK EFFECTIVENESS. CALL LIGHT WITHIN REACH.
[2019-05-29 16:06] LABS: ACID FAST SPEC PROCESSING Concentration (.)
--- NOTE | 2019-05-29 16:34 | NUR ---
PT C/O RIGHT LEG PAIN RATIING IT A 03/04. MEDICATED WITH PRN NORCO. WILL CHECK EFFECTIVENESS. CALL LIGHT WITHIN REACH.
--- NOTE | 2019-05-29 16:50 | NUR ---
PT STATES PAIN MED WAS EFFECTIVE RATING PAIN A 4/10. WILL CONTINUE TO MONITOR. CALL LIGHT WITHIN REACH.
--- NOTE | 2019-05-29 20:40 | NUR ---
PATIENT MEDICATED WITH NORCO PER PRN ORDER FOR C/O KNEE PAIN. RATED PAIN A 8/10 WITH 10 BEING THE WORST. SEE EMAR. REINFORCED USE OF CALL LIGHT,
--- NOTE | 2019-05-29 23:20 | NUR ---
PATEITN MEDICATED WITH MORPHINE PER PRN ORDER AND PATIENT REQUEST FOR C/O KNEE PAIN. RATED PAIN A 6/10 WITH 10 BEING THE WORST. SEE EMAR. REINFORCED USE OF CALL LIGHT
[2019-05-30] VITALS: BP 119/87
--- NOTE | 2019-05-30 01:00 | NUR ---
PATIENT RESTING QUIETLY. NO FURTHER C/O VOICED.
--- NOTE | 2019-05-30 02:01 | NUR ---
PATIENT MEDICATED WITH NORCO PER PRN ORDER AND PATIENT REQUEST FOR C/O PAIN. RATED PAIN A 7/10 WITH 10 BEING THE WORST. SEE EMAR. REINFORCED USE OF CALL LIGHT.
[2019-05-30 06:45] LABS: BASO % 0.1 % (0.0-1.0); EOS # 0.1 10*3/uL (0.0-0.4); EOS % 0.6 % (1.0-4.0); HEMATOCRIT 34.6 % (37.0-47.0); HEMOGLOBIN 10.5 g/dl (12.0-16.0); LYMPH # 1.7 10*3/uL (1.3-4.4); MEAN CELL VOLUME 92.5 fl (81.0-99.0); MEAN CORPUSCULAR HGB 28.1 pg (27.0-31.0); MEAN CORPUSCULAR HGB CONC 30.3 g/dl (33.0-37.0); MEAN PLATELET VOLUME 8.5 fl (9.6-12.3); MONO # 1.4 10*3/uL (0.1-1.0); NEUT # 8.1 10*3/uL (2.3-7.9); PLATELET COUNT AUTOMATED 285 10*3/uL (130-400); RED BLOOD COUNT 3.74 10*6/uL (4.10-5.10); RED CELL DISTRI WIDTH 14.5 % (0-14.5); WHITE BLOOD COUNT 11.4 10*3/uL (4.8-10.8)
[2019-05-30 06:59] LABS: ALBUMIN 2.2 gm/dl (3.1-4.5); BUN 23 mg/dl (7-24); CHLORIDE 104 mmol/L (98-107); POTASSIUM 4.7 mmol/L (3.5-5.1); SODIUM 135 mmol/L (136-145)
[2019-05-30 07:02] LABS: ALKALINE PHOSPHATASE 77 U/L (45-117); CREATININE 0.93 mg/dL (0.55-1.02); SGOT/AST 66 IU/L (3-35); SGPT/ALT 132 U/L (12-78); TOTAL PROTEIN 6.4 gm/dL (6.4-8.2)
[2019-05-30 08:00] VITALS: BP 132/68
--- NOTE | 2019-05-30 09:00 | NUR ---
DR. MCNEIL AWARE OF RESULT.
--- NOTE | 2019-05-30 09:36 | NUR ---
MEDICATED WITH NORCO FOR C/O R LEG PAIN RATED AT A 9 OUT 0F 10.
--- NOTE | 2019-05-30 10:30 | NUR ---
TAMMIE HELPED A LITTLE.
[2019-05-30 12:00] VITALS: BP 162/72
--- NOTE | 2019-05-30 12:48 | NUR ---
MEICATED WITH MORPHINE PER ORDER AND REQUEST FOR R KNEE PAIN.
--- NOTE | 2019-05-30 15:10 | NUR ---
MEDICATED WITH NORCO PER REQUEST FOR R KNEE PAIN.
[2019-05-30 16:00] VITALS: BP 131/92
--- NOTE | 2019-05-30 16:00 | NUR ---
PATIENT SLEEPING TAMMIE HELPED.
--- NOTE | 2019-05-30 18:01 | NUR ---
MEDICATED WITH PRN MORPHINE PER ORDER AND REQUEST FOR R KNEE PAIN.
--- NOTE | 2019-05-30 19:53 | NUR ---
1939 NORCO 1 PO GIVEN FOR CONT C/O'S PAIN R KNEE. WILL MONITOR.
[2019-05-30 20:00] VITALS: BP 142/74
--- NOTE | 2019-05-30 20:06 | NUR ---
RESTING IN BED WATCHING TV. NO DISTRESS NOTED. HEP LOCK INTACT.
--- NOTE | 2019-05-30 22:31 | NUR ---
PATIENT IS AAOX3 RESTING IN BED WITH EASY AND REGULAR RESPERS ON ROOM AIR. ASSESSMENT IS COMPLETE WITH NO S/S OF DISTRESS NOTED. PATIENT C/O RIGHT KNEE PAIN RATING A 7/10 AND PRN MORPHINE PROVIDED PER PATIENT REQUEST. BED IS LOW, LOCKED, AND CALL LIGHT IS WITHIN REACH. WILL CONTNIUE TO MONITOR SEE SHIFT ASSESSMENT.
--- NOTE | 2019-05-30 23:00 | NUR ---
WHILE REASSESSING PATIENTS PAIN, NOTICED THAT MELINA DRAIN WAS OUT OF RIGHT KNEE, CALL PLACED TO DR. GAMBLE AND NO NEW ORDERS RECIEVED AT THIS TIME. PATIENT DENIES ANY PAIN AT THIS TIME. CALL LIGHT IS WITHIN REACH, WILL CONTINUE TO MONITOR.
[2019-05-31] VITALS: BP 152/60
--- NOTE | 2019-05-31 00:05 | NUR ---
PATIENT WANTED ASSISTED FROM BED TO CHAIR TO TRY AND ALLEVIATE RIGHT KNEE PAIN AT 2345. IN PROCESS OF TRANSFERING FROM BED TO WHEELCHAIR PATIENT ASKED FOR "PAIN PILL". PRN NORCO GIVEN AT 2354, PATIENT TOLERATED WELL. CALL LIGHT IS WITHIN REACH, WILL MONITOR EFFECT.
--- NOTE | 2019-05-31 00:09 | NUR ---
PATIENT ASSISTED FROM CHAIR TO BED AT THIS TIME WITH WALKER. BED IS LOW, LOCKED, AND CALL LIGHT IS WITHIN REACH. WILL MONITOR EFFECT OF PAIN MEDICATION.
[2019-05-31 06:27] LABS: BASO % 0.2 % (0.0-1.0); EOS # 0.2 10*3/uL (0.0-0.4); EOS % 1.7 % (1.0-4.0); HEMATOCRIT 34.3 % (37.0-47.0); HEMOGLOBIN 10.7 g/dl (12.0-16.0); LYMPH # 1.9 10*3/uL (1.3-4.4); LYMPH % 17.2 % (27.0-41.0); MEAN CELL VOLUME 89.6 fl (81.0-99.0); MEAN CORPUSCULAR HGB 27.9 pg (27.0-31.0); MEAN CORPUSCULAR HGB CONC 31.2 g/dl (33.0-37.0); MEAN PLATELET VOLUME 8.9 fl (9.6-12.3); MONO # 1.2 10*3/uL (0.1-1.0); MONO % 10.3 % (3.0-9.0); NEUT # 7.6 10*3/uL (2.3-7.9); NEUT % 68.1 % (47.0-73.0); PLATELET COUNT AUTOMATED 294 10*3/uL (130-400); RED BLOOD COUNT 3.83 10*6/uL (4.10-5.10); RED CELL DISTRI WIDTH 14.2 % (0-14.5); WHITE BLOOD COUNT 11.2 10*3/uL (4.8-10.8)
--- NOTE | 2019-05-31 06:29 | NUR ---
24 HOUR CHART CHECK COMPLETE.
[2019-05-31 06:41] LABS: ALBUMIN 2.1 gm/dl (3.1-4.5); ALKALINE PHOSPHATASE 86 U/L (45-117); BUN 18 mg/dl (7-24); CHLORIDE 104 mmol/L (98-107); CREATININE 0.81 mg/dL (0.55-1.02); POTASSIUM 4.2 mmol/L (3.5-5.1); SGOT/AST 37 IU/L (3-35); SGPT/ALT 87 U/L (12-78); SODIUM 136 mmol/L (136-145); TOTAL PROTEIN 6.5 gm/dL (6.4-8.2)
[2019-05-31 08:00] VITALS: BP 142/44
--- NOTE | 2019-05-31 08:38 | NUR ---
DR. PATEL HAS ROUNDED. PATIENT PEMROSE DRAIN CAME OUT THROUGH NIGHT DRESSING 1/2 OFF AND NEEDS CHANGED.
--- NOTE | 2019-05-31 09:15 | NUR ---
MEDICATED WITH PRN NORCO PER ORDER AND REQUEST. DR. NIYAH LUONG.
--- NOTE | 2019-05-31 10:46 | NUR ---
DRESSING CHANGED. DR. LONG UPDATED DR. MILLER ON PATIENT STATUS. POSSIBLE RE-SCOPE IN AM 06/01 PENDING MRI RESULTS.
--- NOTE | 2019-05-31 11:32 | NUR ---
MEDICATED WITH STRAIGHT PERCOCET PER ORDER.
[2019-05-31 12:00] VITALS: BP 158/64
--- NOTE | 2019-05-31 13:00 | NUR ---
PERCOCET GIVEN EARLIER HELPED.
[2019-05-31 16:00] VITALS: BP 145/62
--- NOTE | 2019-05-31 18:58 | NUR ---
DR. MILLER AT BEDSIDE AND ASPIRATED R KNEE. SPECIMEN WALKED TO LAB. DRESSING PLACED BY DOCTOR. 4X4,ABD,2 TAMI WRAPS.
--- NOTE | 2019-05-31 19:59 | NUR ---
PATIENT IS RESTING IN BED WITH EASY AND REGULAR RESPERS ON ROOM AIR. ASSESSMENT IS COMPLETE WITH NO C/O OR S/S OF DISTRESS NOTED AT THIS TIME. BED IS LOW, LOCKED, AND CALL LIGHT IS WITHIN REACH. 2000 SCHEDULED PERCOCET GIVEN AT THIS TIME AND PATIENT TOLERATED WELL. WILL MONITOR EFFECT OF PAIN MEDICATION, SEE SHIFT ASSESSMENT.
[2019-05-31 20:00] VITALS: BP 160/71
[2019-06-01] VITALS: BP 155/60
[2019-06-01 06:13] LABS: HEMATOCRIT 33.3 % (37.0-47.0); HEMOGLOBIN 10.8 g/dl (12.0-16.0); MEAN CELL VOLUME 88.1 fl (81.0-99.0); MEAN CORPUSCULAR HGB 28.6 pg (27.0-31.0); MEAN CORPUSCULAR HGB CONC 32.4 g/dl (33.0-37.0); MEAN PLATELET VOLUME 8.9 fl (9.6-12.3); PLATELET COUNT AUTOMATED 305 10*3/uL (130-400); RED BLOOD COUNT 3.78 10*6/uL (4.10-5.10); RED CELL DISTRI WIDTH 14.1 % (0-14.5); WHITE BLOOD COUNT 12.2 10*3/uL (4.8-10.8)
[2019-06-01 06:46] LABS: BUN 16 mg/dl (7-24); CHLORIDE 101 mmol/L (98-107); POTASSIUM 4.3 mmol/L (3.5-5.1); SODIUM 135 mmol/L (136-145)
[2019-06-01 07:09] LABS: PLATELET SUFFICIENCY NORMAL (NORMAL); TOTAL CELLS COUNTED 100 #CELLS
[2019-06-01 08:00] VITALS: BP 134/64
--- NOTE | 2019-06-01 08:04 | NUR ---
OT NOTE Attempted to see pt this A.M. for OT session and upon arrival pt was out of the room for an MRI. Will check back at a later time/date and continue with POC as able. LEANDER Spivey/Shaun
--- NOTE | 2019-06-01 08:05 | NUR ---
PHYSICAL THERAPY Patient was being transported down for MRI this am upon therapist arrival and not available for treatment at this time. Will continue per POC pending results of MRI. Beka Pinzon, COOKER OPERATOR
--- NOTE | 2019-06-01 08:40 | NUR ---
PT IN MRI FOR TEST. REFUSING TEST SHE CAN'T HANDLE LAYING ON TABLE. C/O PAIN TO RIGHT KNEE RATES PAIN 8 ON PAIN SCALE 0-10. MEDICATED WITH MORPHINE IV PER PRN ORDER, SEE EMAR. THEY WILL BE BRINGING PT TO ROOM.
--- NOTE | 2019-06-01 09:00 | NUR ---
Line Appliance Assembler in to see patient. No new needs or request at this time. When medically stable and precert is received she will be discharged to [place]. materials planner following.
--- NOTE | 2019-06-01 09:34 | NUR ---
DR. KEYES AWARE PT REFUSED MRI.
--- NOTE | 2019-06-01 09:40 | NUR ---
PT RESTING IN BED. STATES PAIN MEDICATION HELPED. CALL LIGHT IN REACH.
--- NOTE | 2019-06-01 10:15 | NUR ---
TOLERATED ROUTINE MED WITH NO PROBLEM. NO C/O AT THIS TIME. CALL LIGHT IN REACH.
--- NOTE | 2019-06-01 11:22 | NUR ---
PT C/O RIGHT KNEE PAIN, RATES PAIN 4 OR 5 ON PAIN SCaLE 0-10. MEDICATED WITH PERCOCET PO PER ROUTINE ORDER, SEE EMAR. CALL LIGHT IN REACH. BSG-[id number]
[2019-06-01 12:00] VITALS: BP 154/74
--- NOTE | 2019-06-01 12:07 | NUR ---
updated clinicals and therapy notes faxed to [facility]/ requires precert. Waiting on patient to be stable for discharge.
[2019-06-01] MEDS ORDERED: PERSERVISION PO (12:11)
--- NOTE | 2019-06-01 12:55 | NUR ---
PHYSICAL THERAPY Patient seen this pm 1:1 for therapy and was supine in bed upon therapist arrival. Patient voices 4/10 R knee pain and present with R knee ina wrap. Patient transfers supine to sit EOB MIN A with use of overhead trapeze bar, then performed several sit to stand transfers, MIN A, use of std walker support. Patient demonstrates slow rise and needed v/c to improve safe transfer technique. Patient able to take 2-3 fwd / bkwd steps, std walker, Min A, demonstrating antalgic step pattern, followed by SPT to [facility] demonstrating Poor upright posture during pivot phase of transfer. Patient returned to supine in bed, MIN A, reporting 7/10 R knee pain. Patient remained in bed with call light, tray table, cell phone and bed alarm. Will continue per POC as tolerated to improve safe , functional transfers / mobility. Total treatment time 14 minutes. Beka Pinzon, CORN PICKER
--- NOTE | 2019-06-01 13:11 | NUR ---
OT NOTE Pt was seen this P.M. 1:1 for 20 minute OT session. Upon arrival pt was supine in bed. Pt identified by name and and had complaints of "4/10 R knee pain." Pt transferred supine to sit EOB with Sanjuanita for assist with RLE. While sitting EOB pt donned L sock with SBA while seated and R sock with maxA due to being unable to reach, pt had reports of having a sock aid at home. Pt completed multiple sit to stand transfers from bed level with Sanjuanita and use of standard walker for UE support. Challenged pt's static standing tolerance needed for increased I in self care tasks and functional transfers, pt was able to tolerate aprox 60 seconds before sitting due to fatigue. Pt then completed standing pivot from the EOB to and from the bedside commode with Sanjuanita. Pt then transferred back into bed sit to supine with Sanjuanita for assist with RLE. There she was left with call light in hand, tray table in place, and bed alarm activated for safety. Continue with rec D/C plan to SNF. LEANDER Spivey/Shaun
--- NOTE | 2019-06-01 14:52 | NUR ---
Contacted [facility] and asked to start precert. waiting on auth
[2019-06-01 16:00] VITALS: BP 147/83
[2019-06-01 20:00] VITALS: BP 137/53
--- NOTE | 2019-06-01 22:04 | NUR ---
PT MEDICATED W/MORPHINE IVP FOR C/O RT KNEE PAIN 03/04.
--- NOTE | 2019-06-01 22:15 | NUR ---
DRSG TO RT KNEE CHANGED ORDERED. PT REFUSING TO BEND KNEE AND RESISTING PROM. 2 SUTURES INTACT. NO DRAINAGE NOTED. MILD SWELLING NOTED. PT TEACHING GIVEN ON NEEDING TO MOVE KNEE OR PT WILL GET STIFF OR EVEN FROZEN. PT STATES SHE CAN'T. CALL LIGHT IN REACH.
[2019-06-02] VITALS: BP 153/53
--- NOTE | 2019-06-02 03:11 | NUR ---
PATIENT RESTING IN BED WITH NO S/S OF DISTRESS. BED IN LOWEST POSITION, CALL LIGHT IN REACH
--- NOTE | 2019-06-02 06:52 | NUR ---
DR YOUNG AWARE OF CRITICAL BODY FLUID RESULTS.
--- NOTE | 2019-06-02 07:06 | NUR ---
Patient has received auth for [facility]. Ok to go if medically stable for discharge.
--- NOTE | 2019-06-02 07:40 | NUR ---
PT C/O RIGHT KNEE PAIN, RATES PAIN 7 ON PAIN SCALE 0-10. MEDICATED WITH PERCOCET PO PER PRN ORDER, SEE EMAR. CALL LIGHT IN REACH.
[2019-06-02 08:00] VITALS: BP 132/64
--- NOTE | 2019-06-02 08:30 | NUR ---
PT RESTING IN BED. MEDICATION EFFECTIVE. NO PAIN WHEN NOT MOVBING PER PT.
--- NOTE | 2019-06-02 08:45 | NUR ---
PHYSICAL THERAPY Patient seen this am 1;1 for therapy visit and was resting supine in bed upon therapist arrival. Patient reports 4/10 R knee pain at rest and stated she had sat up in bedside chair yesterday for over 5 hours. Patient transfers supine to sit EOB with use of overhead trapeze bar, MIN A, tolerating static EOB sit x 4-5 minutes without c/o. Patient performed sit to stand transfer, MIN A, use of std walker standing support, voicing no change in R knee pain c/o. Patient completed SPT to bedside recliner chair, MIN A, use of std walker, demonstrating "slouched" upright posture and difficulty advancing R LE. Patient is WBAT on R LE and remained semi reclined in bedside chair following treatment with call light, tray table and cell phone. Will continue per POC as tolerated, total treatment time 13 minutes. Beka Pinzon, ROOF TRUSS BUILDER
--- NOTE | 2019-06-02 09:00 | NUR ---
OT NOTE Pt was seen this A.M. 1:1 for 15 minute OT session. Upon arrival pt was supine in bed. Pt identified by name and and had complaints of "4/10 R knee pain." Pt transferred supine to sit EOB with Sanjuanita and use of overhead trapeze bar for UB support. Pt completed multiple sit to stand transfers from bed level with Sanjuanita and use of w/w for UE support. Challenged pt's static standing tolerance needed for increased I in self care tasks and functional transfers. Pt was able to tolerate aprox 1-2 minutes at a time before sitting due to fatigue. Pt completed standing pivot from EOB to the recliner with Sanjuanita and use of w/w. There she was left sitting reclined with call light in hand, tray table in place, and phone in reach. Continue with rec D/C plan to SNF. LEANDER Spivey/Shaun
--- NOTE | 2019-06-02 10:00 | NUR ---
Overhead Worker in to see patient. She is sitting up in her bedside chair without distress noted. Niece visiting at bedside. She is awaiting her PICC line. When medically stable and PICC line is inserted she will be discharged to [place]. marine air ground task force planners following.
--- NOTE | 2019-06-02 10:48 | NUR ---
PT C/O RIGHT KNEE PAIN, RATES PAIN 4 OR 5 ON PAIN SCALE 0-10. MEDICATED WITH PERCOCET PO PER PRN ORDER, SEE EMAR. [id number], SEE EMAR. CALL LIGHT IN REACH.
--- NOTE | 2019-06-02 11:00 | NUR ---
assumed care for this pt at this time. pt c/o rt knee pain 03/04. pt had already been medicated w/percocet as ordered. pt encouraged to perform rom while sitting in chair. IS given to pt and encouraged use to prevent pneumonia while immobile. call light in reach.
--- NOTE | 2019-06-02 12:30 | NUR ---
pt leaving floor at this time to surgery for PICC line placement via w/c.
--- NOTE | 2019-06-02 12:32 | NUR ---
jg stating they are ok with the recommended IV ATB cefazolin for patient and she has auth. patient is ok to go if medically stable for discharge.
--- NOTE | 2019-06-02 13:11 | NUR ---
spoke w/isabella in case management, pt does not qualify for ambulance transport to [place]. pt will need to find her own ride. case management will speak with pt.
--- NOTE | 2019-06-02 14:17 | NUR ---
Patient discharging to [facility]. Transportation scheduled for 4:30 with [facility]. [facility], nursing/auto parts clerk notified.
[2019-06-02] MEDS ORDERED: VITAMIN D32000 UNI1 PO (14:55)
[2019-06-02] MEDS ORDERED: OXYBUTYNIN CHLOR5 MG PO (14:55)
[2019-06-02] MEDS ORDERED: PERCOCET 7.5-31 EACH PO (14:55)
--- NOTE | 2019-06-02 18:04 | NUR ---
[facility]
--- NOTE | 2019-06-02 18:05 | NUR ---
Discharge instructions reviewed with patient/family. Patient receptive and verbalizes understanding. Follow-up care arranged. Written instructions given to patient/family. DEE CAMPOS
--- NOTE | 2019-06-03 16:12 | NUR ---
OCCUPATIONAL THERAPY CO-SIGN I approve of the Occupational Therapy notes written above. CAROLYNN TINEO OTR/Shaun
[2019-07-10 10:09] LABS: ACID FAST CULTURE Negative (.)
== END 2019-06-02 18:05 | disposition other institution (70) | DRG 853 ==
LOC: ED 15:36 → 4E 18:32 → EDHOLD 18:32 → 4E 19:50
PROVIDERS: Internal Medicine; Orthopaedic Surgery; Student in an Organized Health Care Education/Training Program; ADMIT Internal Medicine
PROC: 0SBC4ZZ Excision of Right Knee Joint, Percutaneous Endoscopic Approach (ICD-10-PCS; principal; 2019-05-28)
PROC: B24BZZ4 Ultrasonography of Heart with Aorta, Transesophageal (ICD-10-PCS; 2019-05-29)
PROC: 0S9C3ZZ Drainage of Right Knee Joint, Percutaneous Approach (ICD-10-PCS; 2019-05-31)
PROC: 02HV33Z Insertion of Infusion Device into Superior Vena Cava, Percutaneous Approach (ICD-10-PCS; 2019-06-02)
DX: A41.01 Sepsis due to Methicillin susceptible Staphylococcus aureus (principal); N17.0 Acute kidney failure with tubular necrosis; M00.9 Pyogenic arthritis, unspecified; E44.0 Moderate protein-calorie malnutrition; Z68.41 Body mass index [BMI] 40.0-44.9, adult; D64.9 Anemia, unspecified; F41.9 Anxiety disorder, unspecified; E03.9 Hypothyroidism, unspecified; E78.5 Hyperlipidemia, unspecified; M15.0 Primary generalized (osteo)arthritis; E11.22 Type 2 diabetes mellitus with diabetic chronic kidney disease; E66.9 Obesity, unspecified; N18.3 Chronic kidney disease, stage 3 (moderate); E55.9 Vitamin D deficiency, unspecified; I12.9 Hypertensive chronic kidney disease with stage 1 through stage 4 chronic kidney disease, or unspecified chronic kidney disease; K21.9 Gastro-esophageal reflux disease without esophagitis; E11.65 Type 2 diabetes mellitus with hyperglycemia; M25.461 Effusion, right knee; M10.9 Gout, unspecified; S83.231A Complex tear of medial meniscus, current injury, right knee, initial encounter; S83.271A Complex tear of lateral meniscus, current injury, right knee, initial encounter; X58.XXXA Exposure to other specified factors, initial encounter; Y93.89 Activity, other specified; Y92.89 Other specified places as the place of occurrence of the external cause; Z79.4 Long term (current) use of insulin; Y99.8 Other external cause status; Z88.0 Allergy status to penicillin; Z88.8 Allergy status to other drugs, medicaments and biological substances; Z82.49 Family history of ischemic heart disease and other diseases of the circulatory system; Z82.0 Family history of epilepsy and other diseases of the nervous system; Z79.899 Other long term (current) drug therapy; Z79.890 Hormone replacement therapy

== ENCOUNTER → 2019-06-22 | Outpatient (CLI) | payer MEDICARE ==
[~2019-06-22] MED LIST changes: +ALLERGY RELIE15.8 ML NAS; +ALLOPURINOL300 MG PO; +CEFAZOLIN1 G1 IV; +DULOXETINE HCL30 MG PO; +Ipratropium Brom3 ML INH; +LANTUS SOL100 UNIT/1 SQ; +LISINOPRIL10 M1 PO; +OXYBUTYNIN CHLOR5 MG PO; +PERCOCET 7.5-31 EACH PO; +PERSERVISION PO; +SYMB160 INH; +VITAMIN D32000 UNI1 PO
== END | disposition home or self-care (01) ==
LOC: ORTHO 01:11
DX: Z45.2 Encounter for adjustment and management of vascular access device (principal); M00.861 Arthritis due to other bacteria, right knee; E10.9 Type 1 diabetes mellitus without complications; I10 Essential (primary) hypertension; F32.9 Major depressive disorder, single episode, unspecified

== ENCOUNTER → 2019-07-16 | Outpatient (CLI) | payer MEDICARE ==
[2019-07-16 15:18] LABS: BASO % 0.3 % (0.0-1.0); EOS # 0.4 10*3/uL (0.0-0.4); EOS % 3.4 % (1.0-4.0); HEMATOCRIT 36.6 % (37.0-47.0); HEMOGLOBIN 11.1 g/dl (12.0-16.0); LYMPH # 1.9 10*3/uL (1.3-4.4); LYMPH % 16.2 % (27.0-41.0); MEAN CELL VOLUME 92.9 fl (81.0-99.0); MEAN CORPUSCULAR HGB 28.2 pg (27.0-31.0); MEAN CORPUSCULAR HGB CONC 30.3 g/dl (33.0-37.0); MEAN PLATELET VOLUME 8.7 fl (9.6-12.3); MONO # 1.3 10*3/uL (0.1-1.0); MONO % 10.5 % (3.0-9.0); NEUT # 8.2 10*3/uL (2.3-7.9); NEUT % 68.8 % (47.0-73.0); PLATELET COUNT AUTOMATED 255 10*3/uL (130-400); RED BLOOD COUNT 3.94 10*6/uL (4.10-5.10); RED CELL DISTRI WIDTH 15.6 % (0-14.5); WHITE BLOOD COUNT 11.9 10*3/uL (4.8-10.8)
[2019-07-16 15:28] LABS: BUN 20 mg/dl (7-24); CHLORIDE 104 mmol/L (98-107); CREATININE 0.85 mg/dL (0.55-1.02); POTASSIUM 5.2 mmol/L (3.5-5.1); SODIUM 139 mmol/L (136-145)
== END | disposition home or self-care (01) ==
LOC: LAB 14:12
PROVIDERS: Orthopaedic Surgery
DX: E78.5 Hyperlipidemia, unspecified (principal); M00.061 Staphylococcal arthritis, right knee; Z16.29 Resistance to other single specified antibiotic

== ENCOUNTER → 2019-09-16 | Outpatient (CLI) | payer MEDICARE ==
[2019-09-16 12:03] LABS: HEMATOCRIT 40.6 % (37.0-47.0); HEMOGLOBIN 12.4 g/dl (12.0-16.0); MEAN CELL VOLUME 90.6 fl (81.0-99.0); MEAN CORPUSCULAR HGB 27.7 pg (27.0-31.0); MEAN CORPUSCULAR HGB CONC 30.5 g/dl (33.0-37.0); MEAN PLATELET VOLUME 8.6 fl (9.6-12.3); RED BLOOD COUNT 4.48 10*6/uL (4.10-5.10); RED CELL DISTRI WIDTH 13.8 % (0-14.5); WHITE BLOOD COUNT 10.7 10*3/uL (4.8-10.8)
[2019-09-16 12:40] LABS: BF LYMPHOCYTES 35 %; BF MACROPHAGES 13 %; BF MONOCYTES 3 %; BF NEUTROPHILS 44 %
[2019-09-16 13:43] LABS: BODY FLUID WBC 204 /uL
== END | disposition home or self-care (01) ==
LOC: ORTHO 01:23
PROVIDERS: Orthopaedic Surgery
DX: A41.01 Sepsis due to Methicillin susceptible Staphylococcus aureus (principal)

== ENCOUNTER → 2019-10-14 | Outpatient (CLI) | payer MEDICARE ==
[2019-10-14 12:22] LABS: BASO % 0.3 % (0.0-1.0); EOS # 0.4 10*3/uL (0.0-0.4); EOS % 3.5 % (1.0-4.0); HEMATOCRIT 41.6 % (37.0-47.0); LYMPH # 2.4 10*3/uL (1.3-4.4); LYMPH % 21.2 % (27.0-41.0); MEAN CELL VOLUME 88.3 fl (81.0-99.0); MEAN CORPUSCULAR HGB 27.6 pg (27.0-31.0); MEAN CORPUSCULAR HGB CONC 31.3 g/dl (33.0-37.0); MEAN PLATELET VOLUME 8.6 fl (9.6-12.3); MONO % 8.6 % (3.0-9.0); NEUT # 7.6 10*3/uL (2.3-7.9); PLATELET COUNT AUTOMATED 266 10*3/uL (130-400); RED BLOOD COUNT 4.71 10*6/uL (4.10-5.10); RED CELL DISTRI WIDTH 14.1 % (0-14.5); WHITE BLOOD COUNT 11.5 10*3/uL (4.8-10.8)
[2019-10-14 12:56] LABS: ALBUMIN 3.5 gm/dl (3.1-4.5); BUN 25 mg/dl (7-24); CHLORIDE 105 mmol/L (98-107); CREATININE 1.04 mg/dL (0.55-1.02); PHOSPHOROUS 4.9 mg/dL (2.5-4.9); POTASSIUM 4.6 mmol/L (3.5-5.1); SODIUM 139 mmol/L (136-145)
[2019-10-15 07:10] LABS: RHEUMATOID ARTHRITIS FACTOR <10.0 IU/mL (0.0-13.9)
== END | disposition home or self-care (01) ==
LOC: LAB 11:54
PROVIDERS: Internal Medicine
DX: E11.65 Type 2 diabetes mellitus with hyperglycemia (principal); I10 Essential (primary) hypertension; M25.579 Pain in unspecified ankle and joints of unspecified foot

== ENCOUNTER → 2020-05-23 | Outpatient (CLI) | payer MEDICARE ==
[2020-05-23 11:49] LABS: BASO % 0.3 % (0.0-1.0); EOS # 0.5 10*3/uL (0.0-0.4); EOS % 4.5 % (1.0-4.0); HEMATOCRIT 38.8 % (37.0-47.0); LYMPH # 1.8 10*3/uL (1.3-4.4); LYMPH % 16.3 % (27.0-41.0); MEAN CELL VOLUME 90.2 fl (81.0-99.0); MEAN CORPUSCULAR HGB 27.9 pg (27.0-31.0); MEAN CORPUSCULAR HGB CONC 30.9 g/dl (33.0-37.0); MEAN PLATELET VOLUME 8.7 fl (9.6-12.3); MONO # 0.9 10*3/uL (0.1-1.0); MONO % 7.6 % (3.0-9.0); PLATELET COUNT AUTOMATED 241 10*3/uL (130-400); RED CELL DISTRI WIDTH 14.6 % (0-14.5); WHITE BLOOD COUNT 11.3 10*3/uL (4.8-10.8)
[2020-05-23 12:20] LABS: ALBUMIN 3.2 gm/dl (3.1-4.5); ALKALINE PHOSPHATASE 102 U/L (45-117); BILIRUBIN, DIRECT < 0.1 mg/dL (0.0-0.2); BUN 22 mg/dl (7-24); CHLORIDE 106 mmol/L (98-107); CHOLESTEROL 145 mg/dL (<200); CREATININE 0.82 mg/dL (0.55-1.02); HDL CHOLESTEROL 40 mg/dl (40-60); LDL CHOLESTEROL 65 mg/dL (9-159); POTASSIUM 5.2 mmol/L (3.5-5.1); SGOT/AST 15 IU/L (3-35); SGPT/ALT 19 U/L (12-78); SODIUM 137 mmol/L (136-145); TOTAL PROTEIN 7.8 gm/dL (6.4-8.2); TRIGLYCERIDES 200 mg/dl (<150); VLDL CHOLESTEROL 40 mg/dL (6-40)
== END | disposition home or self-care (01) ==
LOC: LAB 10:50
PROVIDERS: ATTEND Internal Medicine
DX: I10 Essential (primary) hypertension (principal); E11.9 Type 2 diabetes mellitus without complications; Z79.4 Long term (current) use of insulin

== ENCOUNTER → 2021-05-08 | Outpatient (CLI) | payer MEDICARE | END | disposition home or self-care (01) | LOC: MAMMO 12:50 | PROVIDERS: ATTEND Internal Medicine | DX: Z12.31 Encounter for screening mammogram for malignant neoplasm of breast (principal) ==

== ENCOUNTER 2021-10-10 17:04 | Emergency (ER) | payer MEDICARE ==
[~2021-10-10] VITALS: Ht 165.1 cm; Wt 99.8 kg
[2021-10-10 17:54] LABS: BASO % 0.2 % (0.0-1.0); EOS # 0.5 10*3/uL (0.0-0.4); EOS % 5.2 % (1.0-4.0); HEMATOCRIT 37.4 % (37.0-47.0); LYMPH # 1.6 10*3/uL (1.3-4.4); LYMPH % 17.6 % (27.0-41.0); MEAN CELL VOLUME 90.6 fl (81.0-99.0); MEAN CORPUSCULAR HGB 29.1 pg (27.0-31.0); MEAN CORPUSCULAR HGB CONC 32.1 g/dl (33.0-37.0); MEAN PLATELET VOLUME 8.3 fl (9.6-12.3); MONO # 0.7 10*3/uL (0.1-1.0); MONO % 7.9 % (3.0-9.0); NEUT # 6.3 10*3/uL (2.3-7.9); NEUT % 68.9 % (47.0-73.0); PLATELET COUNT AUTOMATED 211 10*3/uL (130-400); RED BLOOD COUNT 4.13 10*6/uL (4.10-5.10); RED CELL DISTRI WIDTH 13.2 % (0-14.5); WHITE BLOOD COUNT 9.1 10*3/uL (4.8-10.8)
[2021-10-10 18:04] LABS: ACT PARTIAL THROMBO TIME 29.1 SECONDS (20.0-32.1)
[2021-10-10 18:06] LABS: BILIRUBIN Negative (Negative); BLOOD Negative (Negative); CLARITY Clear (Clear); COLOR Yellow (Yellow); GLUCOSE Negative (Negative); KETONE Negative (Negative); LEUKO ESTERASE Negative (Negative); NITRITE Negative (Negative); PH 6.5 (4.5-8.0); SPECIFIC GRAVITY 1.015 (1.001-1.030); UROBILINOGEN 0.2 E.U./dl (0.0-1.0)
[2021-10-10 18:09] LABS: ALBUMIN 3.3 gm/dl (3.1-4.5); ALKALINE PHOSPHATASE 91 U/L (45-117); BUN 32 mg/dl (7-24); CREATININE 0.93 mg/dL (0.55-1.02); SGOT/AST 14 IU/L (3-35); SGPT/ALT 20 U/L (12-78); TOTAL PROTEIN 7.2 gm/dL (6.4-8.2)
[2021-10-10 18:16] LABS: BACTERIA 1+
[2021-10-10 18:58] LABS: CHLORIDE 105 mmol/L (98-107); SODIUM 139 mmol/L (136-145)
== END 2021-10-10 20:22 | disposition home or self-care (01) ==
LOC: ED 17:04
PROVIDERS: Emergency Medicine
DX: N17.9 Acute kidney failure, unspecified (principal); R01.1 Cardiac murmur, unspecified; E66.9 Obesity, unspecified; M19.90 Unspecified osteoarthritis, unspecified site; E03.9 Hypothyroidism, unspecified; E78.5 Hyperlipidemia, unspecified; M10.9 Gout, unspecified; K21.9 Gastro-esophageal reflux disease without esophagitis; I12.9 Hypertensive chronic kidney disease with stage 1 through stage 4 chronic kidney disease, or unspecified chronic kidney disease; N18.30 Chronic kidney disease, stage 3 unspecified; Z88.0 Allergy status to penicillin; Z88.8 Allergy status to other drugs, medicaments and biological substances; Z79.899 Other long term (current) drug therapy; Z90.89 Acquired absence of other organs; Z98.890 Other specified postprocedural states

== ENCOUNTER → 2023-02-04 | Outpatient (CLI) | payer MEDICARE ==
[~2023-02-04] MED LIST changes: +ASPIRIN81 M1 PO; +BACTRIM 400-801 EACH PO; +BRILINTA90 M1 PO; +BUDESONIDE-FO10.2 G1 INH; +CARVEDILOL12.5 MG PO; +DICLOFENAC SOD100 G1 T; +FUROSEMIDE40 MG PO; +JARDIANCE10 MG PO; +LEVOTHYROXINE200 MC2 PO; +MIRALAX17 GM PO; +OXYBUTYNIN ER15 MG PO; +OXYCODONE-ACET1 EACH PO; +ROSUVASTATIN CA40 MG PO; +SEPTDS PO
== END ==
LOC: MAMMO 01-14 00:59
PROVIDERS: ATTEND Internal Medicine
DX: Z12.31 Encounter for screening mammogram for malignant neoplasm of breast (principal)

== ENCOUNTER → 2023-03-21 | Outpatient (CLI) | payer MEDICARE ==
[2023-03-21 10:23] LABS: BASO % 0.5 % (0.0-1.0); EOS # 0.4 10*3/uL (0.0-0.4); EOS % 5.4 % (1.0-4.0); HEMATOCRIT 43.3 % (37.0-47.0); LYMPH # 2.1 10*3/uL (1.3-4.4); LYMPH % 26.5 % (27.0-41.0); MEAN CELL VOLUME 90.6 fl (81.0-99.0); MEAN CORPUSCULAR HGB 29.5 pg (27.0-31.0); MEAN CORPUSCULAR HGB CONC 32.6 g/dl (33.0-37.0); MEAN PLATELET VOLUME 8.8 fl (9.6-12.3); MONO # 0.8 10*3/uL (0.1-1.0); MONO % 9.9 % (3.0-9.0); NEUT # 4.6 10*3/uL (2.3-7.9); NEUT % 57.6 % (47.0-73.0); PLATELET COUNT AUTOMATED 266 10*3/uL (130-400); RED BLOOD COUNT 4.78 10*6/uL (4.10-5.10); RED CELL DISTRI WIDTH 14.4 % (0-14.5); WHITE BLOOD COUNT 7.9 10*3/uL (4.8-10.8)
[2023-03-21 10:24] LABS: BILIRUBIN Negative (Negative); BLOOD Negative (Negative); CLARITY Clear (Clear); COLOR Yellow (Yellow); GLUCOSE 2+ (Negative); KETONE Negative (Negative); LEUKO ESTERASE Negative (Negative); NITRITE Negative (Negative); PH 6.5 (4.5-8.0); UROBILINOGEN 0.2 E.U./dl (0.0-1.0)
[2023-03-21 10:30] LABS: URINE CREATININE RANDOM 51.94 mg/dL
[2023-03-21 10:31] LABS: BACTERIA 1+; EPITHELIAL CELLS 16-20
[2023-03-21 10:58] LABS: POTASSIUM 4.3 mmol/L (3.4-5.1); URIC ACID 5.8 mg/dL (3.1-7.8)
[2023-03-21 11:20] LABS: VITAMIN D, 25-HYDROXY 53.4 ng/mL (30-100)
== END | disposition home or self-care (01) ==
LOC: LAB 01:27
PROVIDERS: ATTEND Internal Medicine Nephrology
DX: N18.32 Chronic kidney disease, stage 3b (principal); D63.1 Anemia in chronic kidney disease; M25.561 Pain in right knee; M25.562 Pain in left knee; N25.81 Secondary hyperparathyroidism of renal origin; M10.9 Gout, unspecified

== ENCOUNTER → 2023-06-21 | Outpatient (CLI) | payer MEDICARE ==
[2023-06-21 12:08] LABS: BILIRUBIN Negative (Negative); BLOOD Negative (Negative); CLARITY Clear (Clear); COLOR Yellow (Yellow); GLUCOSE 3+ (Negative); KETONE Negative (Negative); LEUKO ESTERASE Negative (Negative); NITRITE Negative (Negative); SPECIFIC GRAVITY 1.025 (1.001-1.030); UROBILINOGEN 0.2 E.U./dl (0.0-1.0)
[2023-06-21 12:08] LABS: BASO % 0.4 % (0.0-1.0); EOS # 0.6 10*3/uL (0.0-0.4); HEMATOCRIT 41.7 % (37.0-47.0); LYMPH # 1.9 10*3/uL (1.3-4.4); LYMPH % 20.7 % (27.0-41.0); MEAN CELL VOLUME 94.8 fl (81.0-99.0); MEAN CORPUSCULAR HGB 30.5 pg (27.0-31.0); MEAN CORPUSCULAR HGB CONC 32.1 g/dl (33.0-37.0); MEAN PLATELET VOLUME 8.7 fl (9.6-12.3); MONO # 0.8 10*3/uL (0.1-1.0); MONO % 8.8 % (3.0-9.0); NEUT # 5.8 10*3/uL (2.3-7.9); NEUT % 63.7 % (47.0-73.0); PLATELET COUNT AUTOMATED 242 10*3/uL (130-400); RED CELL DISTRI WIDTH 13.1 % (0-14.5); WHITE BLOOD COUNT 9.1 10*3/uL (4.8-10.8)
[2023-06-21 12:15] LABS: URINE CREATININE RANDOM 57.88 mg/dL
[2023-06-21 12:40] LABS: POTASSIUM 4.4 mmol/L (3.4-5.1); URIC ACID 5.4 mg/dL (3.1-7.8)
[2023-06-21 12:45] LABS: VITAMIN D, 25-HYDROXY 50.1 ng/mL (30-100)
[2023-06-21 13:52] LABS: BACTERIA 1+
== END | disposition home or self-care (01) ==
LOC: LAB 00:34
PROVIDERS: ATTEND Internal Medicine Nephrology
DX: N18.30 Chronic kidney disease, stage 3 unspecified (principal); M10.9 Gout, unspecified; N25.81 Secondary hyperparathyroidism of renal origin; D63.1 Anemia in chronic kidney disease

== ENCOUNTER → 2023-08-23 | Outpatient (CLI) | payer MEDICARE ==
[2023-08-23 10:04] LABS: BASO % 0.3 % (0.0-1.0); EOS # 0.5 10*3/uL (0.0-0.4); LYMPH # 1.5 10*3/uL (1.3-4.4); LYMPH % 15.8 % (27.0-41.0); MEAN CELL VOLUME 95.2 fl (81.0-99.0); MEAN CORPUSCULAR HGB 29.2 pg (27.0-31.0); MEAN CORPUSCULAR HGB CONC 30.7 g/dl (33.0-37.0); MONO # 0.8 10*3/uL (0.1-1.0); MONO % 8.6 % (3.0-9.0); NEUT # 6.7 10*3/uL (2.3-7.9); PLATELET COUNT AUTOMATED 223 10*3/uL (130-400); RED BLOOD COUNT 4.62 10*6/uL (4.10-5.10); RED CELL DISTRI WIDTH 13.2 % (0-14.5); WHITE BLOOD COUNT 9.6 10*3/uL (4.8-10.8)
[2023-08-23 11:03] LABS: POTASSIUM 4.9 mmol/L (3.4-5.1); TOTAL PROTEIN 7.5 gm/dL (6.0-8.0)
== END | disposition home or self-care (01) ==
LOC: LAB 00:22
PROVIDERS: Internal Medicine Clinical Cardiac Electrophysiology
DX: R00.1 Bradycardia, unspecified (principal)

== ENCOUNTER → 2024-01-06 | Outpatient (CLI) | payer MEDICARE | END | disposition home or self-care (01) | LOC: CARD 01-01 08:30 | PROVIDERS: ATTEND Internal Medicine Cardiovascular Disease | DX: I08.2 Rheumatic disorders of both aortic and tricuspid valves (principal) ==

== ENCOUNTER → 2024-01-13 | Outpatient (CLI) | payer MEDICARE ==
[2024-01-13 10:42] LABS: BASO % 0.2 % (0.0-1.0); EOS # 0.6 10*3/uL (0.0-0.4); EOS % 6.8 % (1.0-4.0); HEMATOCRIT 40.6 % (37.0-47.0); LYMPH # 1.9 10*3/uL (1.3-4.4); MEAN CELL VOLUME 91.9 fl (81.0-99.0); MEAN CORPUSCULAR HGB 30.3 pg (27.0-31.0); MEAN PLATELET VOLUME 8.6 fl (9.6-12.3); MONO # 0.9 10*3/uL (0.1-1.0); MONO % 9.9 % (3.0-9.0); NEUT # 5.9 10*3/uL (2.3-7.9); NEUT % 62.5 % (47.0-73.0); PLATELET COUNT AUTOMATED 221 10*3/uL (130-400); RED BLOOD COUNT 4.42 10*6/uL (4.10-5.10); RED CELL DISTRI WIDTH 12.9 % (0-14.5); WHITE BLOOD COUNT 9.4 10*3/uL (4.8-10.8)
[2024-01-13 10:49] LABS: URINE CREATININE RANDOM 63.13 mg/dL
[2024-01-13 11:06] LABS: BILIRUBIN Negative (Negative); BLOOD Negative (Negative); CLARITY Cloudy (Clear); COLOR Yellow (Yellow); GLUCOSE 2+ (Negative); KETONE Negative (Negative); LEUKO ESTERASE Trace (Negative); NITRITE Negative (Negative); PH 7.5 (4.5-8.0); POTASSIUM 4.9 mmol/L (3.4-5.1); SPECIFIC GRAVITY 1.025 (1.001-1.030); URIC ACID 4.9 mg/dL (3.1-7.8); UROBILINOGEN 0.2 E.U./dl (0.0-1.0)
[2024-01-13 11:09] LABS: VITAMIN D, 25-HYDROXY 54.4 ng/mL (30-100)
[2024-01-13 11:46] LABS: BACTERIA 3+; EPITHELIAL CELLS 41-50; WBC 16-20 wbc/hpf (0-5)
== END | disposition home or self-care (01) ==
LOC: LAB 01:49
PROVIDERS: ATTEND Internal Medicine Nephrology
DX: N18.30 Chronic kidney disease, stage 3 unspecified (principal); M10.9 Gout, unspecified; D63.1 Anemia in chronic kidney disease; N25.81 Secondary hyperparathyroidism of renal origin

== ENCOUNTER → 2024-02-07 | Outpatient (CLI) | payer MEDICARE | END | disposition home or self-care (01) | LOC: RAD 00:52 | PROVIDERS: ATTEND Internal Medicine | DX: M85.88 Other specified disorders of bone density and structure, other site (principal); N95.0 Postmenopausal bleeding ==

== ENCOUNTER → 2024-04-03 | Outpatient (CLI) | payer MEDICARE ==
[2024-04-03 15:13] LABS: BILIRUBIN Negative (Negative); BLOOD Negative (Negative); CLARITY Clear (Clear); COLOR Yellow (Yellow); GLUCOSE 2+ (Negative); KETONE Negative (Negative); LEUKO ESTERASE Negative (Negative); NITRITE Negative (Negative); UROBILINOGEN 0.2 E.U./dl (0.0-1.0)
[2024-04-03 15:22] LABS: BACTERIA 1+; YEAST TRACE
== END | disposition home or self-care (01) ==
LOC: LAB 01:01
PROVIDERS: ATTEND Internal Medicine
DX: N39.0 Urinary tract infection, site not specified (principal)

== ENCOUNTER → 2024-09-15 | Outpatient (CLI) | payer MEDICARE ==
[2024-09-15 17:05] LABS: BILIRUBIN Negative (Negative); BLOOD Negative (Negative); CLARITY Clear (Clear); COLOR Yellow (Yellow); GLUCOSE 3+ (Negative); KETONE Negative (Negative); LEUKO ESTERASE Negative (Negative); NITRITE Negative (Negative); PH 7.5 (4.5-8.0); SPECIFIC GRAVITY 1.025 (1.001-1.030); UROBILINOGEN 0.2 E.U./dl (0.0-1.0)
[2024-09-15 17:06] LABS: BASO % 0.3 % (0.0-1.0); EOS # 0.5 10*3/uL (0.0-0.4); EOS % 4.9 % (1.0-4.0); MEAN CELL VOLUME 92.8 fl (81.0-99.0); MEAN CORPUSCULAR HGB 29.2 pg (27.0-31.0); MEAN CORPUSCULAR HGB CONC 31.5 g/dl (33.0-37.0); MEAN PLATELET VOLUME 8.9 fl (9.6-12.3); MONO # 0.9 10*3/uL (0.1-1.0); MONO % 8.9 % (3.0-9.0); NEUT # 6.8 10*3/uL (2.3-7.9); NEUT % 69.8 % (47.0-73.0); PLATELET COUNT AUTOMATED 255 10*3/uL (130-400); RED BLOOD COUNT 4.42 10*6/uL (4.10-5.10); RED CELL DISTRI WIDTH 13.3 % (0-14.5); WHITE BLOOD COUNT 9.7 10*3/uL (4.8-10.8)
[2024-09-15 17:18] LABS: MUCOUS TRACE
[2024-09-15 17:41] LABS: POTASSIUM 4.4 mmol/L (3.4-5.1); URIC ACID 5.9 mg/dL (3.1-7.8)
[2024-09-15 17:45] LABS: VITAMIN D, 25-HYDROXY 35.3 ng/mL (30-100)
== END | disposition home or self-care (01) ==
LOC: LAB 15:59
PROVIDERS: ATTEND Internal Medicine Nephrology
DX: E11.22 Type 2 diabetes mellitus with diabetic chronic kidney disease (principal); N18.30 Chronic kidney disease, stage 3 unspecified; M10.9 Gout, unspecified; D63.1 Anemia in chronic kidney disease; N25.81 Secondary hyperparathyroidism of renal origin

== ENCOUNTER → 2025-04-12 | Outpatient (CLI) | payer MEDICARE ==
[2025-04-12 09:58] LABS: BASO # 0.0 10*3/uL (0.0-0.1); BASO % 0.4 % (0.0-1.0); EOS # 0.4 10*3/uL (0.0-0.4); EOS % 4.3 % (1.0-4.0); MEAN CELL VOLUME 93.3 fl (81.0-99.0); MEAN CORPUSCULAR HGB 28.7 pg (27.0-31.0); MEAN PLATELET VOLUME 8.6 fl (9.6-12.3); MONO # 0.9 10*3/uL (0.1-1.0); MONO % 9.7 % (3.0-9.0); NEUT # 6.1 10*3/uL (2.3-7.9); NEUT % 67.0 % (47.0-73.0); NUCLEATED RED BLOOD CELL 0.0 % (0.0-0.0); NUCLEATED RED BLOOD CELL 0.0 10*3/uL (0.0-0.0); PLATELET COUNT AUTOMATED 252 10*3/uL (130-400); RED CELL DISTRI WIDTH 13.8 % (0-14.5)
[2025-04-12 10:32] LABS: BILIRUBIN Negative (Negative); BLOOD Negative (Negative); CLARITY Clear (Clear); COLOR Yellow (Yellow); KETONE Negative (Negative); LEUKO ESTERASE Negative (Negative); NITRITE Negative (Negative); PH 5.5 (4.5-8.0); SPECIFIC GRAVITY 1.025 (1.001-1.030); UROBILINOGEN 0.2 E.U./dl (0.0-1.0)
[2025-04-12 10:54] LABS: BUN 43.0 mg/dl (9-23)
[2025-04-12 11:02] LABS: VITAMIN D, 25-HYDROXY 48.1 ng/mL (30-100)
[2025-04-12 11:30] LABS: BACTERIA 2+
== END | disposition home or self-care (01) ==
LOC: LAB 09:22 → MAMMO 10:30
PROVIDERS: ATTEND Internal Medicine Nephrology
DX: Z12.31 Encounter for screening mammogram for malignant neoplasm of breast (principal); R92.323 Mammographic fibroglandular density, bilateral breasts; E11.22 Type 2 diabetes mellitus with diabetic chronic kidney disease; N18.30 Chronic kidney disease, stage 3 unspecified; D63.1 Anemia in chronic kidney disease; N25.81 Secondary hyperparathyroidism of renal origin

== ENCOUNTER 2025-05-25 07:45 | Emergency (ER) | payer MEDICARE ==
[~2025-05-25] VITALS: Ht 160 cm; Wt 113.4 kg
[2025-05-25 08:18] LABS: BASO # 0.0 10*3/uL (0.0-0.1); BASO % 0.3 % (0.0-1.0); EOS # 0.3 10*3/uL (0.0-0.4); EOS % 2.6 % (1.0-4.0); MEAN CELL VOLUME 92.2 fl (81.0-99.0); MEAN CORPUSCULAR HGB 28.5 pg (27.0-31.0); MEAN PLATELET VOLUME 8.5 fl (9.6-12.3); MONO # 1.0 10*3/uL (0.1-1.0); MONO % 8.7 % (3.0-9.0); NEUT # 9.3 10*3/uL (2.3-7.9); NEUT % 79.8 % (47.0-73.0); NUCLEATED RED BLOOD CELL 0.0 % (0.0-0.0); NUCLEATED RED BLOOD CELL 0.0 10*3/uL (0.0-0.0); PLATELET COUNT AUTOMATED 212 10*3/uL (130-400); RED CELL DISTRI WIDTH 14.0 % (0-14.5)
[2025-05-25 08:46] LABS: BUN 48.0 mg/dl (9-23); CPK 55.0 U/L (34-171); SGPT/ALT 14.0 U/L (5-49)
[2025-05-25] MEDS ORDERED: METHOCARBAMOL750 M1 PO (09:24)
[2025-05-25] MEDS ORDERED: PREDNISONE20 M1 PO (09:24)
[2025-05-25] MEDS ORDERED: Dexamethasone Sodium Phospha 20 MG/5 ML VIAL IV ONE (09:25)
[2025-05-25] MEDS ORDERED: ALBUTEROL 8 GM INHALER INH ONE (09:25)
== END 2025-05-25 09:49 | disposition home or self-care (01) ==
LOC: ED 07:45
PROVIDERS: Emergency Medicine
DX: J06.9 Acute upper respiratory infection, unspecified (principal); M94.0 Chondrocostal junction syndrome [Tietze]; E11.22 Type 2 diabetes mellitus with diabetic chronic kidney disease; I12.9 Hypertensive chronic kidney disease with stage 1 through stage 4 chronic kidney disease, or unspecified chronic kidney disease; N18.9 Chronic kidney disease, unspecified; Z95.0 Presence of cardiac pacemaker; Z88.0 Allergy status to penicillin; Z88.8 Allergy status to other drugs, medicaments and biological substances; Z79.899 Other long term (current) drug therapy; Z90.89 Acquired absence of other organs; Z20.822 Contact with and (suspected) exposure to COVID-19

== ENCOUNTER → 2025-07-07 | Outpatient (CLI) | payer MEDICARE ==
[~2025-07-07] MED LIST changes: +METHOCARBAMOL750 M1 PO; +PREDNISONE20 M1 PO
[2025-07-07 11:38] LABS: BASO # 0.1 10*3/uL (0.0-0.1); BASO % 0.5 % (0.0-1.0); EOS # 0.4 10*3/uL (0.0-0.4); EOS % 3.4 % (1.0-4.0); MEAN CELL VOLUME 90.8 fl (81.0-99.0); MEAN CORPUSCULAR HGB 28.5 pg (27.0-31.0); MEAN PLATELET VOLUME 8.5 fl (9.6-12.3); MONO # 1.1 10*3/uL (0.1-1.0); MONO % 9.8 % (3.0-9.0); NEUT # 7.8 10*3/uL (2.3-7.9); NEUT % 70.8 % (47.0-73.0); NUCLEATED RED BLOOD CELL 0.0 % (0.0-0.0); NUCLEATED RED BLOOD CELL 0.0 10*3/uL (0.0-0.0); PLATELET COUNT AUTOMATED 260 10*3/uL (130-400); RED CELL DISTRI WIDTH 14.1 % (0-14.5)
[2025-07-07 11:57] LABS: BUN 39 mg/dl (9-23); LDL CHOLESTEROL 55 mg/dL (9-159); SGPT/ALT 12 U/L (5-49)
== END | disposition home or self-care (01) ==
LOC: LAB 02:14
PROVIDERS: ATTEND Internal Medicine
DX: I10 Essential (primary) hypertension (principal); E11.9 Type 2 diabetes mellitus without complications; E78.5 Hyperlipidemia, unspecified; E78.2 Mixed hyperlipidemia; F11.90 Opioid use, unspecified, uncomplicated